=== PATIENT | male | born 1955 | race Caucasian/White ===

== ENCOUNTER 2020-10-06 15:03 | Inpatient (IN) | payer MEDICARE, OTHER ==
[~2020-10-06] VITALS: Ht 177.8 cm; Wt 88.2 kg
[2020-10-06] MEDS ORDERED: ZOLP10TA8 PO (15:09)
[2020-10-06] MEDS ORDERED: ASPI-728 PO (15:09)
[2020-10-06] MEDS ORDERED: METF-960 PO (15:09)
[2020-10-06] MEDS ORDERED: AMLO-257 PO (15:09)
[2020-10-06] MEDS ORDERED: METO-558 PO (15:09)
[2020-10-06] MEDS ORDERED: ATOR40TA28 PO (15:09)
[2020-10-06] MEDS ORDERED: NITR0.4T52 SL (15:09)
[2020-10-06] MEDS ORDERED: MONT-35 PO (15:09)
[2020-10-06] MEDS ORDERED: DEXAMETHASONE SOD PHOS 4 MG/ML VIAL ONE (15:19)
[2020-10-06] MEDS ORDERED: DEXAMETHASONE SOD PHOS 4 MG/ML VIAL IVP ONE (15:30)
[2020-10-06 15:36] LABS: ABG A-A DIFF O2 623.6 mmHg (10-20.0); ABG BASE EXCESS -7.2 mmol/L (-2.0-3.0); ABG CARBOXYHEMOGLOBIN 1.1 % (0.0-1.5); ABG METHEMOGLOBIN 0.2 % (0.0-1.5); ABG OXYGEN CONTENT 18.7 mL/dL (15.0-23.0); ABG OXYGEN SATURATION 90.6 % (95.0-98.0); ABG OXYHEMOGLOBIN 89.4 % (94.0-100.0); ABG PCO2 25 mmHg (35-45); ABG PH 7.444 (7.35-7.450); ABG TOTAL HEMOGLOBIN 14.9 G/dL (12.0-18.0); PO2, ARTERIAL BG 64.2 mmHg (79.0-87.0); SOURCE, BLOOD GAS ARTERIAL; TEMPERATURE, FAHRENHEIT, BG 98.6 FAHREN (96.0-98.6)
[2020-10-06 15:37] LABS: O2 DEVICE,BLOOD GAS NON REBREATHER (ROOM AIR); SITE, BLOOD GAS LFT RADIAL
[2020-10-06 15:38] LABS: HEMATOCRIT 46.8 % (41-53); HEMOGLOBIN 15.1 g/dL (13.5-17.5); MEAN CORPUSCULAR HEMOGLOBIN 29.1 pg (26.0-34.0); MEAN CORPUSCULAR HGB CONC 32.4 G/dL (31.0-37.0); MEAN CORPUSCULAR VOLUME 90 fL (80-100); PLATELET COUNT (AUTO) 308 K/uL (150-450); RED BLOOD CELL COUNT(AUTO) 5.21 MIL/uL (4.50-5.90)
[2020-10-06 16:40] LABS: ALBUMIN 2.3 g/dL (3.4-5.0); BILIRUBIN,TOTAL 1.1 mg/dL (0.1-1.0); C-REACTIVE PROTEIN QUANT 21.87 mg/dL (0.00-0.30); CALCIUM, TOTAL 8.9 mg/dL (8.8-10.5); CREATININE 1.81 mg/dL (0.60-1.30); POTASSIUM 4.6 mmol/L (3.5-5.1); TOTAL PROTEIN, SERUM 7.9 g/dL (6.4-8.2)
[2020-10-06 16:47] LABS: BAND NEUTROPHILS % (MANUAL) 8 % (0-5); LYMPHOCYTES % (MANUAL) 8 % (22-44); METAMYELOCYTES % 2 % (0-0); MONOCYTES % (MANUAL) 3 % (2-9); MYELOCYTES % 2 % (0-0); SEGMENTED NEUTROPHILS % 77 % (40-70)
[2020-10-06] MEDS ORDERED: CefTRIAXone 1 GM/DEXTROSE 50 ML IV ONE (17:00)
[2020-10-06] MEDS ORDERED: SODIUM CHLORIDE 0.9% 1,000 ML IV ONE (17:00)
[2020-10-06] MEDS ORDERED: VANCOMYCIN HCL 1.5 GM in DEXTROSE 5%-WATER 250 ML IV ONE (17:00)
[2020-10-06 17:15] LABS: COVID AG,FIA SOURCE NASAL SWAB
[2020-10-06] MEDS ORDERED: SODIUM CHLORIDE 0.9% 250 ML IV ONE ×2 (17:23→21:42)
[2020-10-06] MEDS ORDERED: POTASSIUM CHL 20 MEQ/0.45% NS 1,000 ML IV PRN (19:45)
[2020-10-06] MEDS ORDERED: DEXTROSE 5%-0.45% SODIUM CHL 1,000 ML IV PRN (19:45)
[2020-10-06] MEDS ORDERED: SODIUM CHLORIDE 0.45% 1,000 ML IV PRN (19:45)
[2020-10-06] MEDS ORDERED: INSULIN REGULAR, HUMAN 100 UNITS/ML IVP PRN (19:45)
[2020-10-06] MEDS ORDERED: POTASSIUM CHLORIDE 40 MEQ in SODIUM CHLORIDE 0.45% 1,000 ML IV PRN (19:45)
[2020-10-06] MEDS ORDERED: INSULIN REGULAR, HUMAN 100 UNITS/ML IVP ONE (19:45)
[2020-10-06] MEDS ORDERED: SODIUM CHLORIDE 0.9% 1,000 ML IV SCH (19:45)
[2020-10-06] MEDS ORDERED: ONDANSETRON HCL 4 MG/2 ML VIAL IVP PRN (19:45)
[2020-10-06] MEDS ORDERED: DEXTROSE 50%-WATER 25 GM/50 ML SYRINGE IVP PRN ×2 (19:45→21:00)
[2020-10-06] MEDS ORDERED: INSULIN REGULAR, HUMAN 100 UNITS in SODIUM CHLORIDE 0.9% 99 ML IV PRN ×2 (19:45)
[2020-10-06 20:20] LABS: ABG A-A DIFF O2 616.6 mmHg (10-20.0); ABG BASE EXCESS -1.3 mmol/L (-2.0-3.0); ABG CARBOXYHEMOGLOBIN 0.7 % (0.0-1.5); ABG HCO3 23.9 mmol/L (22.0-26.0); ABG METHEMOGLOBIN 0.3 % (0.0-1.5); ABG OXYGEN CONTENT 18.7 mL/dL (15.0-23.0); ABG OXYGEN SATURATION 90.4 % (95.0-98.0); ABG OXYHEMOGLOBIN 89.5 % (94.0-100.0); ABG PCO2 33 mmHg (35-45); ABG PH 7.453 (7.35-7.450); ABG TOTAL HEMOGLOBIN 14.9 G/dL (12.0-18.0); PO2, ARTERIAL BG 63.3 mmHg (79.0-87.0); SOURCE, BLOOD GAS ARTERIAL; TEMPERATURE, FAHRENHEIT, BG 98.6 FAHREN (96.0-98.6)
[2020-10-06 20:21] LABS: O2 DEVICE,BLOOD GAS HI FL CANNULA (ROOM AIR); SITE, BLOOD GAS LFT RADIAL
[2020-10-06] MEDS ORDERED: HEPARIN SODIUM,PORCINE 5,000 UNITS/ML VIAL IVP PRN ×2 (20:45)
[2020-10-06] MEDS ORDERED: HEPARIN SODIUM 25000 UNITS/D5W 250 ML IV PRN (20:45)
[2020-10-06] MEDS ORDERED: SODIUM CHLORIDE 0.45% 1,000 ML IV SCH (21:00)
[2020-10-06] MEDS ORDERED: INSULIN GLARGINE,HUM.REC.ANLOG 100 UNITS/ML SQ SCH (21:00)
[2020-10-06] MEDS: AZITHROMYCIN 500 MG/NS 250 ML IV SCH (21:19)
[2020-10-06] MEDS: DOCUSATE SODIUM 100 MG CAPSULE PO SCH (21:23)
[2020-10-06 22:59] LABS: RED CELL DISTRIBUTION WIDTH 14.5 % (11.5-14.5)
[2020-10-06 23:05] LABS: HEMATOCRIT 43.7 % (41-53); MEAN CORPUSCULAR HEMOGLOBIN 28.6 pg (26.0-34.0); MEAN CORPUSCULAR HGB CONC 32.1 G/dL (31.0-37.0); MEAN CORPUSCULAR VOLUME 89 fL (80-100); PLATELET COUNT (AUTO) 221 K/uL (150-450)
[2020-10-06 23:09] LABS: D-DIMER 31.92 mg/L FEU (0.00-0.50); INR 1.1 (0.9-1.1); PROTHROMBIN TIME 11.3 SEC (9.4-11.6)
[2020-10-06 23:40] LABS: C-REACTIVE PROTEIN QUANT 17.5 mg/dL (0.00-0.30)
[2020-10-06 23:54] LABS: BAND NEUTROPHILS % (MANUAL) 9 % (0-5); LYMPHOCYTES % (MANUAL) 4 % (22-44); METAMYELOCYTES % 1 % (0-0); MONOCYTES % (MANUAL) 3 % (2-9); MYELOCYTES % 1 % (0-0); SEGMENTED NEUTROPHILS % 82 % (40-70)
[2020-10-07] VITALS: BP 146/101
[2020-10-07] MEDS ORDERED: INSULIN LISPRO 100 UNITS/ML SQ ONE (00:45)
[2020-10-07 01:42] LABS: BILIRUBIN,TOTAL 0.9 mg/dL (0.1-1.0); CALCIUM, TOTAL 7.5 mg/dL (8.8-10.5); CREATININE 1.23 mg/dL (0.60-1.30); POTASSIUM 4.4 mmol/L (3.5-5.1); TOTAL PROTEIN, SERUM 6.7 g/dL (6.4-8.2)
[2020-10-07] MEDS: INSULIN LISPRO 100 UNITS/ML SQ PRN ×4 (02:08→16:37)
[2020-10-07 04:00] VITALS: BP 134/82
[2020-10-07 05:55] LABS: HEMATOCRIT 41.6 % (41-53); HEMOGLOBIN 13.9 g/dL (13.5-17.5); MEAN CORPUSCULAR HEMOGLOBIN 29.3 pg (26.0-34.0); MEAN CORPUSCULAR HGB CONC 33.5 G/dL (31.0-37.0); MEAN CORPUSCULAR VOLUME 87 fL (80-100); PLATELET COUNT (AUTO) 218 K/uL (150-450); RED BLOOD CELL COUNT(AUTO) 4.76 MIL/uL (4.50-5.90); RED CELL DISTRIBUTION WIDTH 14.6 % (11.5-14.5)
[2020-10-07 06:00] LABS: D-DIMER 35.2 mg/L FEU (0.00-0.50)
[2020-10-07] MEDS ORDERED: NITROGLYCERIN 0.4 MG SUBLINGUAL TABLET #25 SL PRN (06:15)
[2020-10-07 06:31] LABS: ALANINE AMINOTRANSFERASE 49 U/L (12-78); ALKALINE PHOSPHATASE 241 U/L (46-116); ANION GAP 0 mmol/L (8-16); ASPARTATE AMINOTRANSFERASE 59 U/L (15-37); C-REACTIVE PROTEIN QUANT 14.13 mg/dL (0.00-0.30); CALCIUM, TOTAL 8.1 mg/dL (8.8-10.5); CARBON DIOXIDE 27 mmol/L (22-29); CHLORIDE 99 mmol/L (98-107); CREATININE 1.09 mg/dL (0.60-1.30); FERRITIN 2029 ng/mL (26-388); GLOMERULAR FILTR. RATE CALC > 60 mL/min (>60); GLUCOSE,RANDOM 317 mg/dL (70-110); POTASSIUM 3.8 mmol/L (3.5-5.1); SODIUM SERUM 126 mmol/L (136-145); TOTAL PROTEIN, SERUM 6.6 g/dL (6.4-8.2); UREA NITROGEN, BLOOD 37 mg/dL (7-18)
[2020-10-07 07:23] LABS: GLUCOSE,POINT OF CARE 575 MG/DL (70-110)
[2020-10-07 07:32] LABS: BAND NEUTROPHILS % (MANUAL) 10 % (0-5); LYMPHOCYTES % (MANUAL) 5 % (22-44); METAMYELOCYTES % 1 % (0-0); MONOCYTES % (MANUAL) 2 % (2-9); MYELOCYTES % 1 % (0-0); SEGMENTED NEUTROPHILS % 81 % (40-70)
[2020-10-07 08:00] VITALS: BP 105/64
[2020-10-07] MEDS ORDERED: HEPARIN SODIUM,PORCINE 5,000 UNITS/ML VIAL IVP PRN ×2 (08:30)
[2020-10-07] MEDS: ASPIRIN 81 MG CHEWABLE TABLET PO SCH (09:03)
[2020-10-07] MEDS: AmLODIPine BESYLATE 5 MG TABLET PO SCH (09:03)
[2020-10-07] MEDS: MONTELUKAST SODIUM 10 MG TABLET PO SCH (09:03)
[2020-10-07] MEDS: DOCUSATE SODIUM 100 MG CAPSULE PO SCH ×2 (09:03→20:53)
[2020-10-07] MEDS: METOPROLOL SUCCINATE 50 MG ER TABLET PO SCH (09:04)
[2020-10-07] MEDS: ATORVASTATIN CALCIUM 40 MG TABLET PO SCH (09:05)
[2020-10-07 09:37] LABS: ABG BASE EXCESS 3.3 mmol/L (-2.0-3.0); ABG CARBOXYHEMOGLOBIN 0.8 % (0.0-1.5); ABG HCO3 27.5 mmol/L (22.0-26.0); ABG METHEMOGLOBIN 0.3 % (0.0-1.5); ABG OXYGEN CONTENT 17.9 mL/dL (15.0-23.0); ABG OXYGEN SATURATION 91.5 % (95.0-98.0); ABG OXYHEMOGLOBIN 90.5 % (94.0-100.0); ABG PCO2 35 mmHg (35-45); ABG TOTAL HEMOGLOBIN 14.1 G/dL (12.0-18.0); SOURCE, BLOOD GAS ARTERIAL
[2020-10-07 09:38] LABS: O2 DEVICE,BLOOD GAS HI FL CANNULA (ROOM AIR); SITE, BLOOD GAS RT RADIAL
[2020-10-07] MEDS ORDERED: INSULIN GLARGINE,HUM.REC.ANLOG 100 UNITS/ML SQ SCH (10:00)
[2020-10-07] MEDS: DEXAMETHASONE SOD PHOS 4 MG/ML VIAL IVP SCH (11:59)
[2020-10-07 12:00] VITALS: BP 114/72
[2020-10-07 16:00] VITALS: BP 116/65
[2020-10-07] MEDS: HEPARIN SODIUM 25000 UNITS/D5W 250 ML IV PRN (16:39)
[2020-10-07] MEDS: CefTRIAXone 1 GM/DEXTROSE 50 ML IV SCH (18:28)
[2020-10-07 20:00] VITALS: BP 126/76
[2020-10-07] MEDS: AZITHROMYCIN 500 MG/NS 250 ML IV SCH (20:53)
[2020-10-07] MEDS: INSULIN GLARGINE,HUM.REC.ANLOG 100 UNITS/ML SQ SCH (21:02)
[2020-10-08] VITALS: BP 148/79
[2020-10-08 04:00] VITALS: BP 111/62
[2020-10-08 05:54] LABS: HEMATOCRIT 39.4 % (41-53); HEMOGLOBIN 13.2 g/dL (13.5-17.5); MEAN CORPUSCULAR HEMOGLOBIN 29.7 pg (26.0-34.0); MEAN CORPUSCULAR HGB CONC 33.5 G/dL (31.0-37.0); MEAN CORPUSCULAR VOLUME 89 fL (80-100); PLATELET COUNT (AUTO) 194 K/uL (150-450); RED BLOOD CELL COUNT(AUTO) 4.44 MIL/uL (4.50-5.90); RED CELL DISTRIBUTION WIDTH 14.2 % (11.5-14.5)
[2020-10-08] MEDS: INSULIN LISPRO 100 UNITS/ML SQ PRN ×5 (06:13→22:09)
[2020-10-08] MEDS ORDERED: SODIUM CHLORIDE 0.9% 250 ML IV ONE (06:31)
[2020-10-08 06:42] LABS: D-DIMER 35.2 mg/L FEU (0.00-0.50)
[2020-10-08 06:55] LABS: ALANINE AMINOTRANSFERASE 54 U/L (12-78); ALBUMIN 2.1 g/dL (3.4-5.0); ALKALINE PHOSPHATASE 245 U/L (46-116); ANION GAP 10 mmol/L (8-16); ASPARTATE AMINOTRANSFERASE 67 U/L (15-37); BILIRUBIN,TOTAL 0.8 mg/dL (0.1-1.0); C-REACTIVE PROTEIN QUANT 5.97 mg/dL (0.00-0.30); CALCIUM, TOTAL 7.9 mg/dL (8.8-10.5); CARBON DIOXIDE 26 mmol/L (22-29); CHLORIDE 100 mmol/L (98-107); FERRITIN 972 ng/mL (26-388); GLOMERULAR FILTR. RATE CALC > 60 mL/min (>60); GLUCOSE,RANDOM 316 mg/dL (70-110); POTASSIUM 4.5 mmol/L (3.5-5.1); SODIUM SERUM 136 mmol/L (136-145); TOTAL PROTEIN, SERUM 6.2 g/dL (6.4-8.2); UREA NITROGEN, BLOOD 23 mg/dL (7-18)
[2020-10-08 08:00] VITALS: BP 114/71
[2020-10-08] MEDS: DEXAMETHASONE SOD PHOS 4 MG/ML VIAL IVP SCH (08:59)
[2020-10-08] MEDS: ASPIRIN 81 MG CHEWABLE TABLET PO SCH (08:59)
[2020-10-08] MEDS: MONTELUKAST SODIUM 10 MG TABLET PO SCH (08:59)
[2020-10-08] MEDS: AmLODIPine BESYLATE 5 MG TABLET PO SCH (08:59)
[2020-10-08] MEDS: METOPROLOL SUCCINATE 50 MG ER TABLET PO SCH (08:59)
[2020-10-08] MEDS: ATORVASTATIN CALCIUM 40 MG TABLET PO SCH (08:59)
[2020-10-08] MEDS: DOCUSATE SODIUM 100 MG CAPSULE PO SCH ×2 (09:00→21:00)
[2020-10-08] MEDS: INSULIN GLARGINE,HUM.REC.ANLOG 100 UNITS/ML SQ SCH ×2 (09:18→22:08)
[2020-10-08] MEDS: HEPARIN SODIUM 25000 UNITS/D5W 250 ML IV PRN (10:44)
[2020-10-08 12:00] VITALS: BP 135/75
[2020-10-08 13:13] LABS: BAND NEUTROPHILS % (MANUAL) 1 % (0-5); LYMPHOCYTES % (MANUAL) 3 % (22-44); MONOCYTES % (MANUAL) 1 % (2-9); MYELOCYTES % 1 % (0-0); SEGMENTED NEUTROPHILS % 94 % (40-70)
[2020-10-08 16:00] VITALS: BP 144/49
[2020-10-08 16:43] LABS: GLUCOSE,POINT OF CARE 508 MG/DL (70-110)
[2020-10-08 16:43] LABS: GLUCOSE,POINT OF CARE 556 MG/DL (70-110)
[2020-10-08 16:44] LABS: GLUCOSE,POINT OF CARE 530 MG/DL (70-110)
[2020-10-08 16:44] LABS: GLUCOSE,POINT OF CARE 531 MG/DL (70-110)
[2020-10-08 16:44] LABS: GLUCOSE,POINT OF CARE 392 MG/DL (70-110)
[2020-10-08 16:44] LABS: GLUCOSE,POINT OF CARE 397 MG/DL (70-110)
[2020-10-08] MEDS: CefTRIAXone 1 GM/DEXTROSE 50 ML IV SCH (17:27)
[2020-10-08 19:21] LABS: GLUCOSE,POINT OF CARE 459 MG/DL (70-110)
[2020-10-08 19:21] LABS: GLUCOSE,POINT OF CARE 427 MG/DL (70-110)
[2020-10-08 19:22] LABS: GLUCOSE,POINT OF CARE 273 MG/DL (70-110)
[2020-10-08 19:22] LABS: GLUCOSE,POINT OF CARE 247 MG/DL (70-110)
[2020-10-08 19:22] LABS: GLUCOSE,POINT OF CARE 279 MG/DL (70-110)
[2020-10-08 19:22] LABS: GLUCOSE,POINT OF CARE 385 MG/DL (70-110)
[2020-10-08 19:22] LABS: GLUCOSE,POINT OF CARE 302 MG/DL (70-110)
[2020-10-08 20:00] VITALS: BP 111/56
[2020-10-08] MEDS: AZITHROMYCIN 500 MG/NS 250 ML IV SCH (20:41)
[2020-10-08 22:15] LABS: GLUCOSE,POINT OF CARE 313 MG/DL (70-110)
[2020-10-09] VITALS: BP 128/68
[2020-10-09] MEDS: HEPARIN SODIUM 25000 UNITS/D5W 250 ML IV PRN ×2 (01:58→20:15)
[2020-10-09 04:00] VITALS: BP 115/61
[2020-10-09 05:26] LABS: BASOPHILS % (AUTO) 0.7 % (0.0-2.0); HEMATOCRIT 40.4 % (41-53); HEMOGLOBIN 13.1 g/dL (13.5-17.5); LYMPHOCYTES # (AUTO) 0.7 K/uL (1.0-4.8); LYMPHOCYTES % (AUTO) 4.6 % (22.0-44.0); MEAN CORPUSCULAR HEMOGLOBIN 28.8 pg (26.0-34.0); MEAN CORPUSCULAR HGB CONC 32.5 G/dL (31.0-37.0); MEAN CORPUSCULAR VOLUME 89 fL (80-100); MONOCYTES # (AUTO) 0.2 K/uL (0.1-1.0); NEUTROPHILS # (AUTO) 14.5 K/uL (1.8-7.7); PLATELET COUNT (AUTO) 193 K/uL (150-450); RED BLOOD CELL COUNT(AUTO) 4.56 MIL/uL (4.50-5.90); RED CELL DISTRIBUTION WIDTH 14.2 % (11.5-14.5)
[2020-10-09 05:36] LABS: NEUTROPHILS % (AUTO) 92.7 % (40.0-70.0)
[2020-10-09 05:45] LABS: D-DIMER 14.79 mg/L FEU (0.00-0.50)
[2020-10-09 06:01] LABS: ALANINE AMINOTRANSFERASE 39 U/L (12-78); ALKALINE PHOSPHATASE 223 U/L (46-116); ANION GAP 4 mmol/L (8-16); ASPARTATE AMINOTRANSFERASE 56 U/L (15-37); BILIRUBIN,TOTAL 0.8 mg/dL (0.1-1.0); C-REACTIVE PROTEIN QUANT 3.69 mg/dL (0.00-0.30); CALCIUM, TOTAL 7.9 mg/dL (8.8-10.5); CARBON DIOXIDE 28 mmol/L (22-29); CHLORIDE 102 mmol/L (98-107); CREATININE 0.67 mg/dL (0.60-1.30); FERRITIN 748 ng/mL (26-388); GLOMERULAR FILTR. RATE CALC > 60 mL/min (>60); GLUCOSE,RANDOM 118 mg/dL (70-110); POTASSIUM 4.1 mmol/L (3.5-5.1); SODIUM SERUM 134 mmol/L (136-145); UREA NITROGEN, BLOOD 15 mg/dL (7-18)
[2020-10-09] MEDS: ASPIRIN 81 MG CHEWABLE TABLET PO SCH (07:55)
[2020-10-09] MEDS: DEXAMETHASONE SOD PHOS 4 MG/ML VIAL IVP SCH (07:55)
[2020-10-09] MEDS: ATORVASTATIN CALCIUM 40 MG TABLET PO SCH (07:55)
[2020-10-09] MEDS: AmLODIPine BESYLATE 5 MG TABLET PO SCH (07:55)
[2020-10-09] MEDS: METOPROLOL SUCCINATE 50 MG ER TABLET PO SCH (07:55)
[2020-10-09] MEDS: MONTELUKAST SODIUM 10 MG TABLET PO SCH (07:56)
[2020-10-09] MEDS: INSULIN GLARGINE,HUM.REC.ANLOG 100 UNITS/ML SQ SCH ×2 (07:57→20:15)
[2020-10-09] MEDS: DOCUSATE SODIUM 100 MG CAPSULE PO SCH ×2 (07:57→21:00)
[2020-10-09 08:00] VITALS: BP 116/71
[2020-10-09 08:02] LABS: GLUCOSE,POINT OF CARE 122 MG/DL (70-110)
[2020-10-09 09:55] LABS: ABG BASE EXCESS 2.5 mmol/L (-2.0-3.0); ABG HCO3 26.8 mmol/L (22.0-26.0); ABG METHEMOGLOBIN 0.3 % (0.0-1.5); ABG OXYGEN CONTENT 17.4 mL/dL (15.0-23.0); ABG OXYGEN SATURATION 90.5 % (95.0-98.0); ABG OXYHEMOGLOBIN 89.3 % (94.0-100.0); ABG PCO2 35 mmHg (35-45); ABG PH 7.491 (7.35-7.450); ABG TOTAL HEMOGLOBIN 13.9 G/dL (12.0-18.0); PO2, ARTERIAL BG 56.3 mmHg (79.0-87.0); SOURCE, BLOOD GAS ARTERIAL; TEMPERATURE, FAHRENHEIT, BG 98.8 FAHREN (96.0-98.6)
[2020-10-09 09:56] LABS: O2 DEVICE,BLOOD GAS HI FL CANNULA (ROOM AIR); SITE, BLOOD GAS RT RADIAL
[2020-10-09] MEDS: ALPRAZolam 0.25 MG TABLET PO PRN (10:50)
[2020-10-09 12:00] VITALS: BP 111/64
[2020-10-09] MEDS: INSULIN LISPRO 100 UNITS/ML SQ PRN ×3 (12:13→20:16)
[2020-10-09 16:00] VITALS: BP 119/61
[2020-10-09] MEDS: CefTRIAXone 1 GM/DEXTROSE 50 ML IV SCH (18:26)
[2020-10-09] MEDS: LORazepam 2 MG/ML VIAL IVP PRN (18:27)
[2020-10-09 19:15] LABS: ABG A-A DIFF O2 551.7 mmHg (10-20.0); ABG HCO3 25.5 mmol/L (22.0-26.0); ABG METHEMOGLOBIN 0.3 % (0.0-1.5); ABG OXYGEN CONTENT 19.4 mL/dL (15.0-23.0); ABG OXYGEN SATURATION 97.9 % (95.0-98.0); ABG OXYHEMOGLOBIN 96.6 % (94.0-100.0); ABG PCO2 40 mmHg (35-45); ABG PH 7.419 (7.35-7.450); ABG TOTAL HEMOGLOBIN 14.2 G/dL (12.0-18.0); FRACTIONATED INSPIRED OXYGEN 98.6 % (21-100.0); PO2, ARTERIAL BG 108.8 mmHg (79.0-87.0); SITE, BLOOD GAS RT RADIAL; SOURCE, BLOOD GAS ARTERIAL
[2020-10-09 19:16] LABS: O2 DEVICE,BLOOD GAS BIPAP (ROOM AIR)
[2020-10-09 20:00] VITALS: BP 117/65
[2020-10-09] MEDS: AZITHROMYCIN 500 MG/NS 250 ML IV SCH (20:14)
[2020-10-09 20:21] LABS: GLUCOSE,POINT OF CARE 189 MG/DL (70-110)
[2020-10-09 20:36] LABS: GLUCOSE,POINT OF CARE 210 MG/DL (70-110)
[2020-10-09 20:36] LABS: GLUCOSE,POINT OF CARE 304 MG/DL (70-110)
[2020-10-10] VITALS: BP 117/65
[2020-10-10 04:00] VITALS: BP 124/66
[2020-10-10] MEDS ORDERED: SODIUM CHLORIDE 0.9% 250 ML IV ONE ×2 (04:00→21:49)
[2020-10-10 05:12] LABS: BASOPHILS % (AUTO) 0.2 % (0.0-2.0); EOSINOPHILS % (AUTO) 0.8 % (1.0-6.0); HEMATOCRIT 40.8 % (41-53); HEMOGLOBIN 13.4 g/dL (13.5-17.5); LYMPHOCYTES # (AUTO) 0.5 K/uL (1.0-4.8); LYMPHOCYTES % (AUTO) 2.8 % (22.0-44.0); MEAN CORPUSCULAR HGB CONC 32.8 G/dL (31.0-37.0); MEAN CORPUSCULAR VOLUME 88 fL (80-100); MONOCYTES # (AUTO) 0.2 K/uL (0.1-1.0); MONOCYTES % (AUTO) 1.4 % (2.0-9.0); NEUTROPHILS # (AUTO) 15.7 K/uL (1.8-7.7); PLATELET COUNT (AUTO) 211 K/uL (150-450); RED BLOOD CELL COUNT(AUTO) 4.63 MIL/uL (4.50-5.90); RED CELL DISTRIBUTION WIDTH 14.3 % (11.5-14.5)
[2020-10-10 05:21] LABS: NEUTROPHILS % (AUTO) 94.8 % (40.0-70.0)
[2020-10-10 05:27] LABS: D-DIMER 10.84 mg/L FEU (0.00-0.50)
[2020-10-10 05:41] LABS: ALANINE AMINOTRANSFERASE 40 U/L (12-78); ALKALINE PHOSPHATASE 219 U/L (46-116); ANION GAP 5 mmol/L (8-16); ASPARTATE AMINOTRANSFERASE 70 U/L (15-37); BILIRUBIN,TOTAL 0.9 mg/dL (0.1-1.0); C-REACTIVE PROTEIN QUANT 11.62 mg/dL (0.00-0.30); CALCIUM, TOTAL 8.3 mg/dL (8.8-10.5); CARBON DIOXIDE 28 mmol/L (22-29); CHLORIDE 101 mmol/L (98-107); CREATININE 0.68 mg/dL (0.60-1.30); FERRITIN 818 ng/mL (26-388); GLOMERULAR FILTR. RATE CALC > 60 mL/min (>60); GLUCOSE,RANDOM 101 mg/dL (70-110); POTASSIUM 4.3 mmol/L (3.5-5.1); SODIUM SERUM 134 mmol/L (136-145); TOTAL PROTEIN, SERUM 6.4 g/dL (6.4-8.2); UREA NITROGEN, BLOOD 16 mg/dL (7-18)
[2020-10-10] MEDS: ACETAMINOPHEN 325 MG TABLET PO PRN ×2 (06:41→14:58)
[2020-10-10] MEDS: INSULIN LISPRO 100 UNITS/ML SQ PRN ×4 (06:42→21:47)
[2020-10-10 08:17] LABS: GLUCOSE,POINT OF CARE 125 MG/DL (70-110)
[2020-10-10] MEDS: DOCUSATE SODIUM 100 MG CAPSULE PO SCH ×2 (09:00→20:17)
[2020-10-10] MEDS: AmLODIPine BESYLATE 5 MG TABLET PO SCH (10:08)
[2020-10-10] MEDS: ASPIRIN 81 MG CHEWABLE TABLET PO SCH (10:08)
[2020-10-10] MEDS: ATORVASTATIN CALCIUM 40 MG TABLET PO SCH (10:08)
[2020-10-10] MEDS: MONTELUKAST SODIUM 10 MG TABLET PO SCH (10:09)
[2020-10-10] MEDS: METOPROLOL SUCCINATE 50 MG ER TABLET PO SCH (10:09)
[2020-10-10] MEDS: DEXAMETHASONE SOD PHOS 4 MG/ML VIAL IVP SCH (10:09)
[2020-10-10] MEDS: INSULIN GLARGINE,HUM.REC.ANLOG 100 UNITS/ML SQ SCH ×2 (10:10→21:45)
[2020-10-10 12:00] VITALS: BP 124/69
[2020-10-10] MEDS: HEPARIN SODIUM 25000 UNITS/D5W 250 ML IV PRN (13:30)
[2020-10-10 16:00] VITALS: BP 117/62
[2020-10-10] MEDS: CefTRIAXone 1 GM/DEXTROSE 50 ML IV SCH (18:16)
[2020-10-10 18:58] LABS: GLUCOSE,POINT OF CARE 170 MG/DL (70-110)
[2020-10-10 18:58] LABS: GLUCOSE,POINT OF CARE 198 MG/DL (70-110)
[2020-10-10 20:00] VITALS: BP 118/70
[2020-10-10] MEDS: AZITHROMYCIN 500 MG/NS 250 ML IV SCH (20:16)
[2020-10-10 20:57] LABS: GLUCOSE,POINT OF CARE 164 MG/DL (70-110)
[2020-10-11 04:00] VITALS: BP 115/64
[2020-10-11] MEDS: HEPARIN SODIUM 25000 UNITS/D5W 250 ML IV PRN (04:56)
[2020-10-11 07:35] LABS: GLUCOSE,POINT OF CARE 143 MG/DL (70-110)
[2020-10-11 07:54] LABS: ABG A-A DIFF O2 364.5 mmHg (10-20.0); ABG BASE EXCESS 6.3 mmol/L (-2.0-3.0); ABG HCO3 29.8 mmol/L (22.0-26.0); ABG METHEMOGLOBIN 0.3 % (0.0-1.5); ABG OXYGEN CONTENT 18.4 mL/dL (15.0-23.0); ABG OXYGEN SATURATION 91.8 % (95.0-98.0); ABG OXYHEMOGLOBIN 90.6 % (94.0-100.0); ABG PCO2 38 mmHg (35-45); ABG PH 7.507 (7.35-7.450); ABG TOTAL HEMOGLOBIN 14.5 G/dL (12.0-18.0); PO2, ARTERIAL BG 57.7 mmHg (79.0-87.0); SITE, BLOOD GAS RT RADIAL; SOURCE, BLOOD GAS ARTERIAL; TEMPERATURE, FAHRENHEIT, BG 98.6 FAHREN (96.0-98.6)
[2020-10-11 07:55] LABS: O2 DEVICE,BLOOD GAS VENTILATOR (ROOM AIR); PRESSURE SUPPORT, BG 12 cm H2O; SPONTANEOUS VT, BG 850 ml; VENT MODE, BG BIPA (ROOM AIR)
[2020-10-11 08:00] VITALS: BP 129/73
[2020-10-11] MEDS: AmLODIPine BESYLATE 5 MG TABLET PO SCH (08:26)
[2020-10-11] MEDS: ASPIRIN 81 MG CHEWABLE TABLET PO SCH (08:26)
[2020-10-11] MEDS: DEXAMETHASONE SOD PHOS 4 MG/ML VIAL IVP SCH (08:26)
[2020-10-11] MEDS: METOPROLOL SUCCINATE 50 MG ER TABLET PO SCH (08:26)
[2020-10-11] MEDS: MONTELUKAST SODIUM 10 MG TABLET PO SCH (08:26)
[2020-10-11] MEDS: ATORVASTATIN CALCIUM 40 MG TABLET PO SCH (08:26)
[2020-10-11] MEDS: DOCUSATE SODIUM 100 MG CAPSULE PO SCH ×2 (08:27→20:30)
[2020-10-11] MEDS: INSULIN GLARGINE,HUM.REC.ANLOG 100 UNITS/ML SQ SCH ×2 (08:30→20:29)
[2020-10-11 12:00] VITALS: BP 126/67
[2020-10-11] MEDS: INSULIN LISPRO 100 UNITS/ML SQ PRN ×3 (12:01→23:39)
[2020-10-11 13:27] LABS: GLUCOSE,POINT OF CARE 285 MG/DL (70-110)
[2020-10-11 13:27] LABS: GLUCOSE,POINT OF CARE 127 MG/DL (70-110)
[2020-10-11 16:00] VITALS: BP 131/68
[2020-10-11] MEDS: ACETAMINOPHEN 325 MG TABLET PO PRN (17:07)
[2020-10-11] MEDS: CefTRIAXone 1 GM/DEXTROSE 50 ML IV SCH (18:07)
[2020-10-11 18:26] LABS: GLUCOSE,POINT OF CARE 211 MG/DL (70-110)
[2020-10-11] MEDS: AZITHROMYCIN 500 MG/NS 250 ML IV SCH (20:30)
[2020-10-11 23:31] LABS: GLUCOSE,POINT OF CARE 229 MG/DL (70-110)
[2020-10-12] VITALS (7 sets, daily range): BP systolic 97–129; BP diastolic 41–69
[2020-10-12] MEDS: INSULIN LISPRO 100 UNITS/ML SQ PRN ×4 (06:01→20:38)
[2020-10-12] MEDS: INSULIN GLARGINE,HUM.REC.ANLOG 100 UNITS/ML SQ SCH ×2 (09:00→20:37)
[2020-10-12] MEDS: DEXAMETHASONE SOD PHOS 4 MG/ML VIAL IVP SCH (09:18)
[2020-10-12] MEDS: ATORVASTATIN CALCIUM 40 MG TABLET PO SCH (09:19)
[2020-10-12] MEDS: DOCUSATE SODIUM 100 MG CAPSULE PO SCH ×2 (09:19→20:40)
[2020-10-12] MEDS: METOPROLOL SUCCINATE 50 MG ER TABLET PO SCH (09:19)
[2020-10-12] MEDS: ASPIRIN 81 MG CHEWABLE TABLET PO SCH (09:19)
[2020-10-12] MEDS: MONTELUKAST SODIUM 10 MG TABLET PO SCH (09:19)
[2020-10-12] MEDS ORDERED: SODIUM CHLORIDE 0.9% 250 ML IV ONE (10:06)
[2020-10-12 11:04] LABS: GLUCOSE,POINT OF CARE 149 MG/DL (70-110)
[2020-10-12] MEDS: AmLODIPine BESYLATE 5 MG TABLET PO SCH (11:34)
[2020-10-12 12:58] LABS: GLUCOSE,POINT OF CARE 111 MG/DL (70-110)
[2020-10-12 12:58] LABS: GLUCOSE,POINT OF CARE 221 MG/DL (70-110)
[2020-10-12] MEDS: HEPARIN SODIUM 25000 UNITS/D5W 250 ML IV PRN (15:24)
[2020-10-12] MEDS: CefTRIAXone 1 GM/DEXTROSE 50 ML IV SCH (17:03)
[2020-10-12] MEDS: AZITHROMYCIN 500 MG/NS 250 ML IV SCH (20:18)
[2020-10-13] VITALS: BP 117/70
[2020-10-13 04:00] VITALS: BP 107/52
[2020-10-13] MEDS: HEPARIN SODIUM 25000 UNITS/D5W 250 ML IV PRN ×2 (05:27→22:03)
[2020-10-13 07:01] LABS: GLUCOSE,POINT OF CARE 101 MG/DL (70-110)
[2020-10-13 07:01] LABS: GLUCOSE,POINT OF CARE 269 MG/DL (70-110)
[2020-10-13 07:01] LABS: GLUCOSE,POINT OF CARE 278 MG/DL (70-110)
[2020-10-13 08:00] VITALS: BP 133/73
[2020-10-13] MEDS: AmLODIPine BESYLATE 5 MG TABLET PO SCH (08:26)
[2020-10-13] MEDS: ASPIRIN 81 MG CHEWABLE TABLET PO SCH (08:26)
[2020-10-13] MEDS: ATORVASTATIN CALCIUM 40 MG TABLET PO SCH (08:27)
[2020-10-13] MEDS: DOCUSATE SODIUM 100 MG CAPSULE PO SCH ×2 (08:27→20:19)
[2020-10-13] MEDS: DEXAMETHASONE SOD PHOS 4 MG/ML VIAL IVP SCH (08:27)
[2020-10-13] MEDS: METOPROLOL SUCCINATE 50 MG ER TABLET PO SCH (08:27)
[2020-10-13] MEDS: MONTELUKAST SODIUM 10 MG TABLET PO SCH (08:27)
[2020-10-13] MEDS: INSULIN GLARGINE,HUM.REC.ANLOG 100 UNITS/ML SQ SCH ×2 (09:00→20:51)
[2020-10-13 12:00] VITALS: BP 127/69
[2020-10-13] MEDS: INSULIN LISPRO 100 UNITS/ML SQ PRN ×2 (13:35→17:44)
[2020-10-13 16:00] VITALS: BP 107/57
[2020-10-13] MEDS ORDERED: SODIUM CHLORIDE 0.9% 250 ML IV ONE (17:56)
[2020-10-13] MEDS: CefTRIAXone 1 GM/DEXTROSE 50 ML IV SCH (18:06)
[2020-10-13 20:00] VITALS: BP 118/73
[2020-10-13] MEDS: AZITHROMYCIN 500 MG/NS 250 ML IV SCH (20:19)
[2020-10-13] MEDS: ALPRAZolam 0.25 MG TABLET PO PRN (20:22)
[2020-10-13 22:43] LABS: GLUCOSE,POINT OF CARE 182 MG/DL (70-110)
[2020-10-13 22:43] LABS: GLUCOSE,POINT OF CARE 206 MG/DL (70-110)
[2020-10-13] MEDS: LORazepam 2 MG/ML VIAL IVP PRN (23:00)
[2020-10-14] VITALS: BP 117/62
[2020-10-14 02:05] LABS: GLUCOSE,POINT OF CARE 213 MG/DL (70-110)
[2020-10-14 02:05] LABS: GLUCOSE,POINT OF CARE 98 MG/DL (70-110)
[2020-10-14 04:00] VITALS: BP 116/55
[2020-10-14] MEDS: ACETAMINOPHEN 325 MG TABLET PO PRN (06:00)
[2020-10-14 06:08] LABS: BASOPHILS % (AUTO) 0.1 % (0.0-2.0); EOSINOPHILS % (AUTO) 0.9 % (1.0-6.0); HEMATOCRIT 39.3 % (41-53); LYMPHOCYTES # (AUTO) 0.5 K/uL (1.0-4.8); LYMPHOCYTES % (AUTO) 2.9 % (22.0-44.0); MEAN CORPUSCULAR VOLUME 88 fL (80-100); MONOCYTES # (AUTO) 0.3 K/uL (0.1-1.0); NEUTROPHILS # (AUTO) 15.4 K/uL (1.8-7.7); PLATELET COUNT (AUTO) 371 K/uL (150-450); RED BLOOD CELL COUNT(AUTO) 4.48 MIL/uL (4.50-5.90); RED CELL DISTRIBUTION WIDTH 14.4 % (11.5-14.5)
[2020-10-14] MEDS: INSULIN LISPRO 100 UNITS/ML SQ PRN ×3 (06:13→17:48)
[2020-10-14 06:27] LABS: ALANINE AMINOTRANSFERASE 196 U/L (12-78); ALBUMIN 1.9 g/dL (3.4-5.0); ALKALINE PHOSPHATASE 398 U/L (46-116); ANION GAP 5 mmol/L (8-16); ASPARTATE AMINOTRANSFERASE 228 U/L (15-37); BILIRUBIN,TOTAL 0.6 mg/dL (0.1-1.0); CALCIUM, TOTAL 8.3 mg/dL (8.8-10.5); CARBON DIOXIDE 30 mmol/L (22-29); CHLORIDE 96 mmol/L (98-107); CREATININE 0.83 mg/dL (0.60-1.30); GLOMERULAR FILTR. RATE CALC > 60 mL/min (>60); GLUCOSE,RANDOM 247 mg/dL (70-110); POTASSIUM 3.7 mmol/L (3.5-5.1); SODIUM SERUM 131 mmol/L (136-145); TOTAL PROTEIN, SERUM 6.3 g/dL (6.4-8.2); UREA NITROGEN, BLOOD 18 mg/dL (7-18)
[2020-10-14 06:31] LABS: NEUTROPHILS % (AUTO) 94.1 % (40.0-70.0)
[2020-10-14 08:00] VITALS: BP 118/74
[2020-10-14] MEDS: DOCUSATE SODIUM 100 MG CAPSULE PO SCH ×2 (08:55→20:53)
[2020-10-14] MEDS: METOPROLOL SUCCINATE 50 MG ER TABLET PO SCH (08:56)
[2020-10-14] MEDS: ASPIRIN 81 MG CHEWABLE TABLET PO SCH (08:56)
[2020-10-14] MEDS: MONTELUKAST SODIUM 10 MG TABLET PO SCH (08:56)
[2020-10-14] MEDS: ATORVASTATIN CALCIUM 40 MG TABLET PO SCH (08:56)
[2020-10-14] MEDS: DEXAMETHASONE SOD PHOS 4 MG/ML VIAL IVP SCH (08:58)
[2020-10-14] MEDS: INSULIN GLARGINE,HUM.REC.ANLOG 100 UNITS/ML SQ SCH ×2 (09:09→20:54)
[2020-10-14 11:35] LABS: GLUCOSE,POINT OF CARE 227 MG/DL (70-110)
[2020-10-14] MEDS: AmLODIPine BESYLATE 5 MG TABLET PO SCH (11:53)
[2020-10-14 12:00] VITALS: BP 145/69
[2020-10-14 12:02] LABS: GLUCOSE,POINT OF CARE 146 MG/DL (70-110)
[2020-10-14 12:36] LABS: GLUCOSE,POINT OF CARE 142 MG/DL (70-110)
[2020-10-14] MEDS: HEPARIN SODIUM 25000 UNITS/D5W 250 ML IV PRN (13:38)
[2020-10-14 16:00] VITALS: BP 116/70
[2020-10-14] MEDS: CefTRIAXone 1 GM/DEXTROSE 50 ML IV SCH (17:04)
[2020-10-14] MEDS ORDERED: SODIUM CHLORIDE 0.9% 250 ML IV ONE (17:57)
[2020-10-14 20:00] VITALS: BP 104/67
[2020-10-14] MEDS: AZITHROMYCIN 500 MG/NS 250 ML IV SCH (20:53)
[2020-10-14 22:43] LABS: GLUCOSE,POINT OF CARE 168 MG/DL (70-110)
[2020-10-14 23:22] LABS: GLUCOSE,POINT OF CARE 186 MG/DL (70-110)
[2020-10-15] VITALS: BP 114/65
[2020-10-15] MEDS: ALPRAZolam 0.25 MG TABLET PO PRN ×2 (03:14→22:12)
[2020-10-15 04:00] VITALS: BP 127/69
[2020-10-15 05:35] LABS: BASOPHILS % (AUTO) 0.5 % (0.0-2.0); EOSINOPHILS % (AUTO) 0.9 % (1.0-6.0); HEMATOCRIT 41.1 % (41-53); HEMOGLOBIN 13.6 g/dL (13.5-17.5); LYMPHOCYTES # (AUTO) 0.5 K/uL (1.0-4.8); LYMPHOCYTES % (AUTO) 3.1 % (22.0-44.0); MEAN CORPUSCULAR HEMOGLOBIN 29.2 pg (26.0-34.0); MEAN CORPUSCULAR VOLUME 89 fL (80-100); MONOCYTES # (AUTO) 0.4 K/uL (0.1-1.0); MONOCYTES % (AUTO) 2.2 % (2.0-9.0); NEUTROPHILS # (AUTO) 14.7 K/uL (1.8-7.7); PLATELET COUNT (AUTO) 356 K/uL (150-450); RED BLOOD CELL COUNT(AUTO) 4.65 MIL/uL (4.50-5.90); RED CELL DISTRIBUTION WIDTH 14.5 % (11.5-14.5)
[2020-10-15 06:30] LABS: NEUTROPHILS % (AUTO) 93.3 % (40.0-70.0)
[2020-10-15 06:31] LABS: GLUCOSE,POINT OF CARE 177 MG/DL (70-110)
[2020-10-15 06:32] LABS: ALANINE AMINOTRANSFERASE 183 U/L (12-78); ALBUMIN 1.7 g/dL (3.4-5.0); ALKALINE PHOSPHATASE 345 U/L (46-116); ANION GAP 5 mmol/L (8-16); ASPARTATE AMINOTRANSFERASE 127 U/L (15-37); BILIRUBIN,TOTAL 0.5 mg/dL (0.1-1.0); CALCIUM, TOTAL 8.4 mg/dL (8.8-10.5); CARBON DIOXIDE 26 mmol/L (22-29); CHLORIDE 100 mmol/L (98-107); CREATININE 0.64 mg/dL (0.60-1.30); GLOMERULAR FILTR. RATE CALC > 60 mL/min (>60); GLUCOSE,RANDOM 224 mg/dL (70-110); POTASSIUM 4.1 mmol/L (3.5-5.1); SODIUM SERUM 131 mmol/L (136-145); UREA NITROGEN, BLOOD 18 mg/dL (7-18)
[2020-10-15] MEDS: INSULIN LISPRO 100 UNITS/ML SQ PRN ×4 (06:42→20:56)
[2020-10-15] MEDS: HEPARIN SODIUM 25000 UNITS/D5W 250 ML IV PRN (07:35)
[2020-10-15 08:00] VITALS: BP 118/68
[2020-10-15] MEDS: ATORVASTATIN CALCIUM 40 MG TABLET PO SCH (09:03)
[2020-10-15] MEDS: DEXAMETHASONE SOD PHOS 4 MG/ML VIAL IVP SCH (09:03)
[2020-10-15] MEDS: METOPROLOL SUCCINATE 50 MG ER TABLET PO SCH (09:03)
[2020-10-15] MEDS: MONTELUKAST SODIUM 10 MG TABLET PO SCH (09:03)
[2020-10-15] MEDS: ASPIRIN 81 MG CHEWABLE TABLET PO SCH (09:03)
[2020-10-15] MEDS: DOCUSATE SODIUM 100 MG CAPSULE PO SCH ×2 (09:04→20:43)
[2020-10-15] MEDS: INSULIN GLARGINE,HUM.REC.ANLOG 100 UNITS/ML SQ SCH ×2 (09:09→20:55)
[2020-10-15 12:00] VITALS: BP 121/72
[2020-10-15] MEDS: AmLODIPine BESYLATE 5 MG TABLET PO SCH (12:45)
[2020-10-15 16:00] VITALS: BP 125/75
[2020-10-15 17:20] LABS: GLUCOSE,POINT OF CARE 270 MG/DL (70-110)
[2020-10-15 17:20] LABS: GLUCOSE,POINT OF CARE 241 MG/DL (70-110)
[2020-10-15 17:21] LABS: GLUCOSE,POINT OF CARE 224 MG/DL (70-110)
[2020-10-15] MEDS ORDERED: SODIUM CHLORIDE 0.9% 250 ML IV ONE (17:48)
[2020-10-15] MEDS: CefTRIAXone 1 GM/DEXTROSE 50 ML IV SCH (17:55)
[2020-10-15] MEDS: AZITHROMYCIN 500 MG/NS 250 ML IV SCH (20:43)
[2020-10-15 21:16] LABS: GLUCOSE,POINT OF CARE 236 MG/DL (70-110)
[2020-10-15] MEDS: ACETAMINOPHEN 325 MG TABLET PO PRN (22:17)
[2020-10-16] VITALS: BP 98/58
[2020-10-16] MEDS: HEPARIN SODIUM 25000 UNITS/D5W 250 ML IV PRN ×2 (01:47→19:03)
[2020-10-16 04:00] VITALS: BP 109/62
[2020-10-16 05:40] LABS: BASOPHILS % (AUTO) 0.2 % (0.0-2.0); EOSINOPHILS % (AUTO) 0.3 % (1.0-6.0); HEMATOCRIT 39.3 % (41-53); HEMOGLOBIN 12.3 g/dL (13.5-17.5); LYMPHOCYTES # (AUTO) 0.5 K/uL (1.0-4.8); LYMPHOCYTES % (AUTO) 2.9 % (22.0-44.0); MEAN CORPUSCULAR HEMOGLOBIN 28.8 pg (26.0-34.0); MEAN CORPUSCULAR HGB CONC 31.4 G/dL (31.0-37.0); MEAN CORPUSCULAR VOLUME 92 fL (80-100); MONOCYTES # (AUTO) 0.4 K/uL (0.1-1.0); MONOCYTES % (AUTO) 2.2 % (2.0-9.0); NEUTROPHILS # (AUTO) 16.8 K/uL (1.8-7.7); PLATELET COUNT (AUTO) 299 K/uL (150-450); RED BLOOD CELL COUNT(AUTO) 4.29 MIL/uL (4.50-5.90); RED CELL DISTRIBUTION WIDTH 15.1 % (11.5-14.5)
[2020-10-16 05:54] LABS: NEUTROPHILS % (AUTO) 94.4 % (40.0-70.0)
[2020-10-16 06:08] LABS: ALANINE AMINOTRANSFERASE 118 U/L (12-78); ALBUMIN 1.5 g/dL (3.4-5.0); ALKALINE PHOSPHATASE 284 U/L (46-116); ANION GAP 11 mmol/L (8-16); ASPARTATE AMINOTRANSFERASE 63 U/L (15-37); BILIRUBIN,TOTAL 0.4 mg/dL (0.1-1.0); CALCIUM, TOTAL 7.7 mg/dL (8.8-10.5); CARBON DIOXIDE 24 mmol/L (22-29); CHLORIDE 88 mmol/L (98-107); CREATININE 0.86 mg/dL (0.60-1.30); GLOMERULAR FILTR. RATE CALC > 60 mL/min (>60); POTASSIUM 3.3 mmol/L (3.5-5.1); TOTAL PROTEIN, SERUM 5.5 g/dL (6.4-8.2); UREA NITROGEN, BLOOD 13 mg/dL (7-18)
[2020-10-16 06:19] LABS: SODIUM SERUM 123 mmol/L (136-145)
[2020-10-16 06:20] LABS: GLUCOSE,RANDOM 567 mg/dL (70-110)
[2020-10-16 06:59] LABS: GLUCOSE,POINT OF CARE 124 MG/DL (70-110)
[2020-10-16 07:22] LABS: ANION GAP 4 mmol/L (8-16); CALCIUM, TOTAL 8.3 mg/dL (8.8-10.5); CARBON DIOXIDE 30 mmol/L (22-29); CHLORIDE 102 mmol/L (98-107); CREATININE 0.65 mg/dL (0.60-1.30); GLOMERULAR FILTR. RATE CALC > 60 mL/min (>60); GLUCOSE,RANDOM 110 mg/dL (70-110); POTASSIUM 3.5 mmol/L (3.5-5.1); SODIUM SERUM 136 mmol/L (136-145); UREA NITROGEN, BLOOD 13 mg/dL (7-18)
[2020-10-16 08:00] VITALS: BP 118/65
[2020-10-16] MEDS: DOCUSATE SODIUM 100 MG CAPSULE PO SCH ×2 (08:30→20:51)
[2020-10-16] MEDS: DEXAMETHASONE SOD PHOS 4 MG/ML VIAL IVP SCH (08:30)
[2020-10-16] MEDS: METOPROLOL SUCCINATE 50 MG ER TABLET PO SCH (08:30)
[2020-10-16] MEDS: AmLODIPine BESYLATE 5 MG TABLET PO SCH (08:31)
[2020-10-16] MEDS: ATORVASTATIN CALCIUM 40 MG TABLET PO SCH (08:31)
[2020-10-16] MEDS: ASPIRIN 81 MG CHEWABLE TABLET PO SCH (08:31)
[2020-10-16] MEDS: MONTELUKAST SODIUM 10 MG TABLET PO SCH (08:31)
[2020-10-16] MEDS: INSULIN GLARGINE,HUM.REC.ANLOG 100 UNITS/ML SQ SCH ×2 (08:32→20:52)
[2020-10-16] MEDS: ALPRAZolam 0.25 MG TABLET PO PRN ×2 (08:50→15:55)
[2020-10-16 12:00] VITALS: BP 122/70
[2020-10-16] MEDS: INSULIN LISPRO 100 UNITS/ML SQ PRN ×3 (12:01→20:52)
[2020-10-16] MEDS ORDERED: BISACODYL 10 MG RECTAL RECTAL SUPPOSITORY PR PRN (14:15)
[2020-10-16] MEDS: MAGNESIUM HYDROXIDE SUSPENSION 30 ML UDCUP PO PRN (15:55)
[2020-10-16 16:00] VITALS: BP 115/61
[2020-10-16] MEDS: CefTRIAXone 1 GM/DEXTROSE 50 ML IV SCH (17:56)
[2020-10-16 18:09] LABS: GLUCOSE,POINT OF CARE 210 MG/DL (70-110)
[2020-10-16 18:09] LABS: GLUCOSE,POINT OF CARE 211 MG/DL (70-110)
[2020-10-16 18:09] LABS: GLUCOSE,POINT OF CARE 108 MG/DL (70-110)
[2020-10-16 20:00] VITALS: BP 111/51
[2020-10-16] MEDS: AZITHROMYCIN 500 MG/NS 250 ML IV SCH (20:51)
[2020-10-16] MEDS: LORazepam 2 MG/ML VIAL IVP PRN (20:53)
[2020-10-16 23:29] LABS: GLUCOSE,POINT OF CARE 339 MG/DL (70-110)
[2020-10-17] VITALS: BP 94/63
[2020-10-17] MEDS ORDERED: SODIUM CHLORIDE 0.9% 250 ML IV ONE (00:04)
[2020-10-17] MEDS: ALPRAZolam 0.25 MG TABLET PO PRN ×3 (00:08→20:02)
[2020-10-17] MEDS: ACETAMINOPHEN 325 MG TABLET PO PRN ×4 (03:20→18:26)
[2020-10-17 04:00] VITALS: BP 123/67
[2020-10-17 06:12] LABS: GLUCOSE,POINT OF CARE 72 MG/DL (70-110)
[2020-10-17 07:02] LABS: ALANINE AMINOTRANSFERASE 102 U/L (12-78); ALBUMIN 1.8 g/dL (3.4-5.0); ALKALINE PHOSPHATASE 329 U/L (46-116); ANION GAP 2 mmol/L (8-16); ASPARTATE AMINOTRANSFERASE 46 U/L (15-37); BILIRUBIN,TOTAL 0.4 mg/dL (0.1-1.0); CALCIUM, TOTAL 8.8 mg/dL (8.8-10.5); CARBON DIOXIDE 31 mmol/L (22-29); CHLORIDE 100 mmol/L (98-107); CREATININE 0.63 mg/dL (0.60-1.30); GLOMERULAR FILTR. RATE CALC > 60 mL/min (>60); GLUCOSE,RANDOM 66 mg/dL (70-110); POTASSIUM 3.7 mmol/L (3.5-5.1); SODIUM SERUM 133 mmol/L (136-145); TOTAL PROTEIN, SERUM 6.3 g/dL (6.4-8.2); UREA NITROGEN, BLOOD 14 mg/dL (7-18)
[2020-10-17 08:00] VITALS: BP 135/72
[2020-10-17] MEDS: DEXAMETHASONE SOD PHOS 4 MG/ML VIAL IVP SCH (09:01)
[2020-10-17] MEDS: ASPIRIN 81 MG CHEWABLE TABLET PO SCH (09:01)
[2020-10-17] MEDS: ATORVASTATIN CALCIUM 40 MG TABLET PO SCH (09:01)
[2020-10-17] MEDS: AmLODIPine BESYLATE 5 MG TABLET PO SCH (09:02)
[2020-10-17] MEDS: METOPROLOL SUCCINATE 50 MG ER TABLET PO SCH (09:02)
[2020-10-17] MEDS: DOCUSATE SODIUM 100 MG CAPSULE PO SCH ×2 (09:02→20:02)
[2020-10-17] MEDS: MONTELUKAST SODIUM 10 MG TABLET PO SCH (09:02)
[2020-10-17 09:10] LABS: BASOPHILS % (AUTO) 0.3 % (0.0-2.0); EOSINOPHILS % (AUTO) 1.8 % (1.0-6.0); HEMATOCRIT 41.4 % (41-53); HEMOGLOBIN 13.7 g/dL (13.5-17.5); LYMPHOCYTES # (AUTO) 0.6 K/uL (1.0-4.8); LYMPHOCYTES % (AUTO) 3.3 % (22.0-44.0); MEAN CORPUSCULAR HGB CONC 33.1 G/dL (31.0-37.0); MEAN CORPUSCULAR VOLUME 88 fL (80-100); MONOCYTES # (AUTO) 0.3 K/uL (0.1-1.0); MONOCYTES % (AUTO) 1.7 % (2.0-9.0); NEUTROPHILS # (AUTO) 17.8 K/uL (1.8-7.7); PLATELET COUNT (AUTO) 395 K/uL (150-450); RED BLOOD CELL COUNT(AUTO) 4.74 MIL/uL (4.50-5.90); RED CELL DISTRIBUTION WIDTH 14.5 % (11.5-14.5)
[2020-10-17 09:11] LABS: NEUTROPHILS % (AUTO) 92.9 % (40.0-70.0)
[2020-10-17] MEDS: INSULIN GLARGINE,HUM.REC.ANLOG 100 UNITS/ML SQ SCH ×2 (09:24→20:58)
[2020-10-17] MEDS: HEPARIN SODIUM 25000 UNITS/D5W 250 ML IV PRN (11:17)
[2020-10-17] MEDS: INSULIN LISPRO 100 UNITS/ML SQ PRN ×3 (11:57→20:57)
[2020-10-17 12:00] VITALS: BP 124/72
[2020-10-17 12:42] LABS: ABG A-A DIFF O2 498.4 mmHg (10-20.0); ABG BASE EXCESS 5.9 mmol/L (-2.0-3.0); ABG CARBOXYHEMOGLOBIN 1.1 % (0.0-1.5); ABG HCO3 29.1 mmol/L (22.0-26.0); ABG METHEMOGLOBIN 0.3 % (0.0-1.5); ABG OXYGEN CONTENT 18.3 mL/dL (15.0-23.0); ABG OXYGEN SATURATION 92.8 % (95.0-98.0); ABG OXYHEMOGLOBIN 91.5 % (94.0-100.0); ABG PCO2 43 mmHg (35-45); ABG PH 7.456 (7.35-7.450); ABG TOTAL HEMOGLOBIN 14.2 G/dL (12.0-18.0); PO2, ARTERIAL BG 62.7 mmHg (79.0-87.0); SOURCE, BLOOD GAS ARTERIAL; TEMPERATURE, FAHRENHEIT, BG 98.6 FAHREN (96.0-98.6)
[2020-10-17 12:43] LABS: O2 DEVICE,BLOOD GAS BIPAP (ROOM AIR); SITE, BLOOD GAS RT RADIAL
[2020-10-17 12:44] LABS: SPONTANEOUS VT, BG 655 ml
[2020-10-17 14:33] LABS: GLUCOSE,POINT OF CARE 204 MG/DL (70-110)
[2020-10-17 16:00] VITALS: BP 117/62
[2020-10-17 17:25] LABS: GLUCOSE,POINT OF CARE 182 MG/DL (70-110)
[2020-10-17] MEDS: CefTRIAXone 1 GM/DEXTROSE 50 ML IV SCH (18:27)
[2020-10-17 20:00] VITALS: BP 128/73
[2020-10-17] MEDS: AZITHROMYCIN 500 MG/NS 250 ML IV SCH (20:02)
[2020-10-17] MEDS: MELATONIN 3 MG TABLET PO PRN (20:02)
[2020-10-17 20:49] LABS: GLUCOSE,POINT OF CARE 240 MG/DL (70-110)
[2020-10-18] VITALS: BP 86/50
[2020-10-18 01:07] LABS: GLUCOSE,POINT OF CARE 231 MG/DL (70-110)
[2020-10-18] MEDS: HEPARIN SODIUM 25000 UNITS/D5W 250 ML IV PRN ×2 (02:27→15:17)
[2020-10-18 04:00] VITALS: BP 118/70
[2020-10-18 06:09] LABS: EOSINOPHILS % (AUTO) 0.7 % (1.0-6.0); HEMATOCRIT 38.2 % (41-53); HEMOGLOBIN 12.5 g/dL (13.5-17.5); LYMPHOCYTES % (AUTO) 6.9 % (22.0-44.0); MEAN CORPUSCULAR HEMOGLOBIN 28.7 pg (26.0-34.0); MEAN CORPUSCULAR HGB CONC 32.8 G/dL (31.0-37.0); MEAN CORPUSCULAR VOLUME 87 fL (80-100); MONOCYTES # (AUTO) 0.2 K/uL (0.1-1.0); MONOCYTES % (AUTO) 1.1 % (2.0-9.0); NEUTROPHILS # (AUTO) 13.4 K/uL (1.8-7.7); PLATELET COUNT (AUTO) 334 K/uL (150-450); RED BLOOD CELL COUNT(AUTO) 4.37 MIL/uL (4.50-5.90); RED CELL DISTRIBUTION WIDTH 14.9 % (11.5-14.5)
[2020-10-18 06:34] LABS: NEUTROPHILS % (AUTO) 91.3 % (40.0-70.0)
[2020-10-18 06:39] LABS: ALANINE AMINOTRANSFERASE 94 U/L (12-78); ALBUMIN 1.4 g/dL (3.4-5.0); ALKALINE PHOSPHATASE 316 U/L (46-116); ANION GAP 3 mmol/L (8-16); ASPARTATE AMINOTRANSFERASE 57 U/L (15-37); BILIRUBIN,TOTAL 0.4 mg/dL (0.1-1.0); CALCIUM, TOTAL 8.4 mg/dL (8.8-10.5); CARBON DIOXIDE 32 mmol/L (22-29); CHLORIDE 101 mmol/L (98-107); CREATININE 0.54 mg/dL (0.60-1.30); GLOMERULAR FILTR. RATE CALC > 60 mL/min (>60); GLUCOSE,RANDOM 81 mg/dL (70-110); POTASSIUM 3.8 mmol/L (3.5-5.1); SODIUM SERUM 136 mmol/L (136-145); TOTAL PROTEIN, SERUM 5.9 g/dL (6.4-8.2); UREA NITROGEN, BLOOD 17 mg/dL (7-18)
[2020-10-18 08:00] VITALS: BP 128/67
[2020-10-18] MEDS: INSULIN GLARGINE,HUM.REC.ANLOG 100 UNITS/ML SQ SCH ×2 (09:00→21:41)
[2020-10-18] MEDS: ASPIRIN 81 MG CHEWABLE TABLET PO SCH (09:05)
[2020-10-18] MEDS: MONTELUKAST SODIUM 10 MG TABLET PO SCH (09:05)
[2020-10-18] MEDS: DOCUSATE SODIUM 100 MG CAPSULE PO SCH ×2 (09:06→21:05)
[2020-10-18] MEDS: METOPROLOL SUCCINATE 50 MG ER TABLET PO SCH (09:06)
[2020-10-18] MEDS: ATORVASTATIN CALCIUM 40 MG TABLET PO SCH (09:07)
[2020-10-18] MEDS: DEXAMETHASONE SOD PHOS 4 MG/ML VIAL IVP SCH (09:08)
[2020-10-18 09:14] LABS: GLUCOSE,POINT OF CARE 76 MG/DL (70-110)
[2020-10-18] MEDS: AmLODIPine BESYLATE 5 MG TABLET PO SCH (10:24)
[2020-10-18 12:00] VITALS: BP 131/107
[2020-10-18] MEDS: INSULIN LISPRO 100 UNITS/ML SQ PRN ×3 (12:26→21:42)
[2020-10-18 12:28] LABS: GLUCOSE,POINT OF CARE 78 MG/DL (70-110)
[2020-10-18] MEDS ORDERED: SODIUM CHLORIDE 0.9% 250 ML IV ONE ×2 (15:13→21:01)
[2020-10-18 16:00] VITALS: BP 120/67
[2020-10-18] MEDS: CefTRIAXone 1 GM/DEXTROSE 50 ML IV SCH (17:51)
[2020-10-18 18:06] LABS: GLUCOSE,POINT OF CARE 214 MG/DL (70-110)
[2020-10-18 20:00] VITALS: BP 123/72
[2020-10-18] MEDS: AZITHROMYCIN 500 MG/NS 250 ML IV SCH (21:05)
[2020-10-18] MEDS: ALPRAZolam 0.25 MG TABLET PO PRN (22:37)
[2020-10-18] MEDS: MELATONIN 3 MG TABLET PO PRN (22:37)
[2020-10-19] VITALS: BP 117/68
[2020-10-19] LABS: GLUCOSE,POINT OF CARE 212 MG/DL (70-110)
[2020-10-19] MEDS: LORazepam 2 MG/ML VIAL IVP PRN (01:16)
[2020-10-19 04:00] VITALS: BP 125/65
[2020-10-19] MEDS: HEPARIN SODIUM 25000 UNITS/D5W 250 ML IV PRN ×2 (05:25→22:38)
[2020-10-19] MEDS: INSULIN LISPRO 100 UNITS/ML SQ PRN ×4 (05:50→23:56)
[2020-10-19 07:01] LABS: GLUCOSE,POINT OF CARE 173 MG/DL (70-110)
[2020-10-19 07:05] LABS: BASOPHILS % (AUTO) 0.3 % (0.0-2.0); EOSINOPHILS % (AUTO) 1.3 % (1.0-6.0); HEMATOCRIT 38.7 % (41-53); HEMOGLOBIN 12.8 g/dL (13.5-17.5); LYMPHOCYTES # (AUTO) 0.7 K/uL (1.0-4.8); LYMPHOCYTES % (AUTO) 4.3 % (22.0-44.0); MEAN CORPUSCULAR HEMOGLOBIN 29.2 pg (26.0-34.0); MEAN CORPUSCULAR HGB CONC 33.2 G/dL (31.0-37.0); MEAN CORPUSCULAR VOLUME 88 fL (80-100); MONOCYTES # (AUTO) 0.4 K/uL (0.1-1.0); MONOCYTES % (AUTO) 2.8 % (2.0-9.0); NEUTROPHILS # (AUTO) 14.5 K/uL (1.8-7.7); PLATELET COUNT (AUTO) 317 K/uL (150-450); RED BLOOD CELL COUNT(AUTO) 4.39 MIL/uL (4.50-5.90); RED CELL DISTRIBUTION WIDTH 14.9 % (11.5-14.5)
[2020-10-19 07:28] LABS: ALANINE AMINOTRANSFERASE 87 U/L (12-78); ALBUMIN 1.7 g/dL (3.4-5.0); ALKALINE PHOSPHATASE 317 U/L (46-116); ANION GAP 5 mmol/L (8-16); ASPARTATE AMINOTRANSFERASE 49 U/L (15-37); BILIRUBIN,TOTAL 0.4 mg/dL (0.1-1.0); CALCIUM, TOTAL 8.4 mg/dL (8.8-10.5); CARBON DIOXIDE 32 mmol/L (22-29); CHLORIDE 101 mmol/L (98-107); CREATININE 0.58 mg/dL (0.60-1.30); GLOMERULAR FILTR. RATE CALC > 60 mL/min (>60); GLUCOSE,RANDOM 149 mg/dL (70-110); POTASSIUM 3.8 mmol/L (3.5-5.1); SODIUM SERUM 138 mmol/L (136-145); TOTAL PROTEIN, SERUM 6.1 g/dL (6.4-8.2); UREA NITROGEN, BLOOD 16 mg/dL (7-18)
[2020-10-19 07:34] LABS: NEUTROPHILS % (AUTO) 91.3 % (40.0-70.0)
[2020-10-19 08:00] VITALS: BP 129/73
[2020-10-19] MEDS: DOCUSATE SODIUM 100 MG CAPSULE PO SCH ×2 (08:04→20:30)
[2020-10-19] MEDS: AmLODIPine BESYLATE 5 MG TABLET PO SCH (08:04)
[2020-10-19] MEDS: ATORVASTATIN CALCIUM 40 MG TABLET PO SCH (08:05)
[2020-10-19] MEDS: METOPROLOL SUCCINATE 50 MG ER TABLET PO SCH (08:05)
[2020-10-19] MEDS: MONTELUKAST SODIUM 10 MG TABLET PO SCH (08:05)
[2020-10-19] MEDS: ASPIRIN 81 MG CHEWABLE TABLET PO SCH (08:05)
[2020-10-19] MEDS: DEXAMETHASONE SOD PHOS 4 MG/ML VIAL IVP SCH (08:06)
[2020-10-19] MEDS: INSULIN GLARGINE,HUM.REC.ANLOG 100 UNITS/ML SQ SCH ×2 (08:23→21:43)
[2020-10-19] MEDS ORDERED: SODIUM CHLORIDE 0.9% 500 ML IV ONE (08:53)
[2020-10-19] MEDS ORDERED: SUCCINYLCHOLINE CHLORIDE 20 MG/ML 10 ML VIAL IVP ONE (09:00)
[2020-10-19] MEDS ORDERED: ROCURONIUM BROMIDE 10 MG/ML 5 ML VIAL IVP ONE (09:00)
[2020-10-19] MEDS ORDERED: PROPOFOL 1000 MG/ISO-OSM 100 ML IV ONE ×2 (09:03→11:45)
[2020-10-19 10:33] LABS: ABG A-A DIFF O2 457.6 mmHg (10-20.0); ABG BASE EXCESS 9.9 mmol/L (-2.0-3.0); ABG CARBOXYHEMOGLOBIN 0.6 % (0.0-1.5); ABG HCO3 28.8 mmol/L (22.0-26.0); ABG METHEMOGLOBIN 0.4 % (0.0-1.5); ABG OXYGEN CONTENT 20.6 mL/dL (15.0-23.0); ABG OXYGEN SATURATION 97.3 % (95.0-98.0); ABG OXYHEMOGLOBIN 96.3 % (94.0-100.0); ABG TOTAL HEMOGLOBIN 15.1 G/dL (12.0-18.0); PO2, ARTERIAL BG 128.5 mmHg (79.0-87.0); SOURCE, BLOOD GAS ARTERIAL; TEMPERATURE, FAHRENHEIT, BG 98.6 FAHREN (96.0-98.6)
[2020-10-19 10:34] LABS: ABG PCO2 127 mmHg (35-45); O2 DEVICE,BLOOD GAS VENTILATOR (ROOM AIR); SITE, BLOOD GAS ARTERIAL LINE; VT, ABG 450 ml
[2020-10-19 10:35] LABS: PEEP,BG 10 cm H2O
[2020-10-19] MEDS: FentaNYL CITRATE PF 500 MCG in DEXTROSE 5%-WATER 90 ML IV PRN ×3 (11:50→20:52)
[2020-10-19 12:00] VITALS: BP 174/54
[2020-10-19 12:14] LABS: ABG A-A DIFF O2 563.7 mmHg (10-20.0); ABG BASE EXCESS 5.1 mmol/L (-2.0-3.0); ABG HCO3 26.2 mmol/L (22.0-26.0); ABG METHEMOGLOBIN 0.1 % (0.0-1.5); ABG OXYGEN CONTENT 17.9 mL/dL (15.0-23.0); ABG OXYGEN SATURATION 88.6 % (95.0-98.0); ABG OXYHEMOGLOBIN 87.6 % (94.0-100.0); ABG PH 7.214 (7.35-7.450); ABG TOTAL HEMOGLOBIN 14.5 G/dL (12.0-18.0); PO2, ARTERIAL BG 65.9 mmHg (79.0-87.0); SOURCE, BLOOD GAS ARTERIAL; TEMPERATURE, FAHRENHEIT, BG 98.6 FAHREN (96.0-98.6)
[2020-10-19 12:15] LABS: ABG PCO2 83 mmHg (35-45); O2 DEVICE,BLOOD GAS VENTILATOR (ROOM AIR); PEEP,BG 10 cm H2O; SITE, BLOOD GAS ARTERIAL LINE; VT, ABG 450 ml
[2020-10-19] MEDS: PROPOFOL 1000 MG/ISO-OSM 100 ML IV PRN ×3 (15:20→23:40)
[2020-10-19 16:00] VITALS: BP 113/45
[2020-10-19 16:45] LABS: GLUCOSE,POINT OF CARE 255 MG/DL (70-110)
[2020-10-19 16:45] LABS: GLUCOSE,POINT OF CARE 179 MG/DL (70-110)
[2020-10-19] MEDS: CefTRIAXone 1 GM/DEXTROSE 50 ML IV SCH (17:15)
[2020-10-19] MEDS ORDERED: SODIUM CHLORIDE 0.9% 250 ML IV ONE (18:44)
[2020-10-19 20:00] VITALS: BP 105/44
[2020-10-19] MEDS: AZITHROMYCIN 500 MG/NS 250 ML IV SCH (20:30)
[2020-10-19 23:41] LABS: GLUCOSE,POINT OF CARE 205 MG/DL (70-110)
[2020-10-20] VITALS: BP 114/46
[2020-10-20 02:34] LABS: GLUCOSE,POINT OF CARE 122 MG/DL (70-110)
[2020-10-20] MEDS: FentaNYL CITRATE PF 500 MCG in DEXTROSE 5%-WATER 90 ML IV PRN ×3 (02:57→16:01)
[2020-10-20 04:00] VITALS: BP 119/51
[2020-10-20] MEDS: PROPOFOL 1000 MG/ISO-OSM 100 ML IV PRN ×3 (05:09→23:36)
[2020-10-20 05:49] LABS: BASOPHILS % (AUTO) 0.5 % (0.0-2.0); EOSINOPHILS % (AUTO) 0.3 % (1.0-6.0); HEMATOCRIT 37.6 % (41-53); HEMOGLOBIN 12.3 g/dL (13.5-17.5); LYMPHOCYTES # (AUTO) 0.7 K/uL (1.0-4.8); LYMPHOCYTES % (AUTO) 4.6 % (22.0-44.0); MEAN CORPUSCULAR HEMOGLOBIN 28.9 pg (26.0-34.0); MEAN CORPUSCULAR HGB CONC 32.8 G/dL (31.0-37.0); MEAN CORPUSCULAR VOLUME 88 fL (80-100); MONOCYTES # (AUTO) 0.6 K/uL (0.1-1.0); MONOCYTES % (AUTO) 3.9 % (2.0-9.0); NEUTROPHILS # (AUTO) 13.6 K/uL (1.8-7.7); PLATELET COUNT (AUTO) 297 K/uL (150-450); RED BLOOD CELL COUNT(AUTO) 4.27 MIL/uL (4.50-5.90); RED CELL DISTRIBUTION WIDTH 14.8 % (11.5-14.5)
[2020-10-20 06:05] LABS: ALANINE AMINOTRANSFERASE 64 U/L (12-78); ALBUMIN 1.7 g/dL (3.4-5.0); ALKALINE PHOSPHATASE 269 U/L (46-116); ANION GAP 1 mmol/L (8-16); ASPARTATE AMINOTRANSFERASE 27 U/L (15-37); BILIRUBIN,TOTAL 0.3 mg/dL (0.1-1.0); CALCIUM, TOTAL 8.3 mg/dL (8.8-10.5); CARBON DIOXIDE 35 mmol/L (22-29); CHLORIDE 100 mmol/L (98-107); CREATININE 0.61 mg/dL (0.60-1.30); GLOMERULAR FILTR. RATE CALC > 60 mL/min (>60); GLUCOSE,RANDOM 70 mg/dL (70-110); POTASSIUM 4.2 mmol/L (3.5-5.1); SODIUM SERUM 136 mmol/L (136-145); TOTAL PROTEIN, SERUM 6.2 g/dL (6.4-8.2); UREA NITROGEN, BLOOD 24 mg/dL (7-18)
[2020-10-20 06:16] LABS: NEUTROPHILS % (AUTO) 90.7 % (40.0-70.0)
[2020-10-20 07:11] LABS: GLUCOSE,POINT OF CARE 61 MG/DL (70-110)
[2020-10-20 07:11] LABS: GLUCOSE,POINT OF CARE 161 MG/DL (70-110)
[2020-10-20] MEDS: INSULIN GLARGINE,HUM.REC.ANLOG 100 UNITS/ML SQ SCH ×2 (09:00→21:00)
[2020-10-20] MEDS: METOPROLOL SUCCINATE 50 MG ER TABLET PO SCH (09:00)
[2020-10-20] MEDS: MONTELUKAST SODIUM 10 MG TABLET PO SCH (09:23)
[2020-10-20] MEDS: AmLODIPine BESYLATE 5 MG TABLET PO SCH (09:23)
[2020-10-20] MEDS: ATORVASTATIN CALCIUM 40 MG TABLET PO SCH (09:23)
[2020-10-20] MEDS: DOCUSATE SODIUM 100 MG CAPSULE PO SCH ×2 (09:23→20:55)
[2020-10-20] MEDS: ASPIRIN 81 MG CHEWABLE TABLET PO SCH (09:24)
[2020-10-20] MEDS: DEXAMETHASONE SOD PHOS 4 MG/ML VIAL IVP SCH (09:24)
[2020-10-20 12:00] VITALS: BP 127/49
[2020-10-20] MEDS: INSULIN LISPRO 100 UNITS/ML SQ PRN ×2 (14:39→19:54)
[2020-10-20 15:59] LABS: ABG BASE EXCESS 10.2 mmol/L (-2.0-3.0); ABG CARBOXYHEMOGLOBIN 0.7 % (0.0-1.5); ABG HCO3 31.8 mmol/L (22.0-26.0); ABG METHEMOGLOBIN 0.3 % (0.0-1.5); ABG OXYGEN CONTENT 17.6 mL/dL (15.0-23.0); ABG OXYGEN SATURATION 96.4 % (95.0-98.0); ABG OXYHEMOGLOBIN 95.4 % (94.0-100.0); ABG PCO2 66 mmHg (35-45); ABG PH 7.355 (7.35-7.450); ABG TOTAL HEMOGLOBIN 13.1 G/dL (12.0-18.0); PO2, ARTERIAL BG 79.6 mmHg (79.0-87.0); SOURCE, BLOOD GAS ARTERIAL; TEMPERATURE, FAHRENHEIT, BG 98.6 FAHREN (96.0-98.6)
[2020-10-20 16:00] VITALS: BP 123/49
[2020-10-20 16:02] LABS: O2 DEVICE,BLOOD GAS VENTILATOR (ROOM AIR); PEEP,BG 10 cm H2O; SITE, BLOOD GAS ART-LINE; VT, ABG 450 ml
[2020-10-20 17:45] LABS: GLUCOSE,POINT OF CARE 125 MG/DL (70-110)
[2020-10-20] MEDS: CefTRIAXone 1 GM/DEXTROSE 50 ML IV SCH (17:46)
[2020-10-20 20:00] VITALS: BP 125/51
[2020-10-20] MEDS: AZITHROMYCIN 500 MG/NS 250 ML IV SCH (20:55)
[2020-10-20] MEDS ORDERED: SODIUM CHLORIDE 0.9% 250 ML IV ONE (21:03)
[2020-10-20 21:36] LABS: GLUCOSE,POINT OF CARE 147 MG/DL (70-110)
[2020-10-20] MEDS ORDERED: SODIUM CHLORIDE 0.9% 500 ML IV ONE (22:18)
[2020-10-21] VITALS: BP 135/57
[2020-10-21] MEDS: FentaNYL CITRATE PF 500 MCG in DEXTROSE 5%-WATER 90 ML IV PRN ×5 (00:13→20:49)
[2020-10-21] MEDS: HEPARIN SODIUM 25000 UNITS/D5W 250 ML IV PRN ×2 (02:34→20:47)
[2020-10-21 03:17] LABS: GLUCOSE,POINT OF CARE 110 MG/DL (70-110)
[2020-10-21 04:00] VITALS: BP 150/57
[2020-10-21] MEDS: PROPOFOL 1000 MG/ISO-OSM 100 ML IV PRN ×4 (04:19→20:50)
[2020-10-21 06:24] LABS: BASOPHILS % (AUTO) 0.2 % (0.0-2.0); EOSINOPHILS % (AUTO) 0.5 % (1.0-6.0); HEMATOCRIT 35.4 % (41-53); HEMOGLOBIN 11.6 g/dL (13.5-17.5); LYMPHOCYTES # (AUTO) 0.6 K/uL (1.0-4.8); LYMPHOCYTES % (AUTO) 4.7 % (22.0-44.0); MEAN CORPUSCULAR HGB CONC 32.7 G/dL (31.0-37.0); MEAN CORPUSCULAR VOLUME 89 fL (80-100); MONOCYTES # (AUTO) 0.6 K/uL (0.1-1.0); MONOCYTES % (AUTO) 4.1 % (2.0-9.0); NEUTROPHILS # (AUTO) 12.1 K/uL (1.8-7.7); PLATELET COUNT (AUTO) 245 K/uL (150-450); RED BLOOD CELL COUNT(AUTO) 3.99 MIL/uL (4.50-5.90); RED CELL DISTRIBUTION WIDTH 14.8 % (11.5-14.5)
[2020-10-21 07:10] LABS: ALANINE AMINOTRANSFERASE 50 U/L (12-78); ALBUMIN 1.8 g/dL (3.4-5.0); ALKALINE PHOSPHATASE 202 U/L (46-116); ANION GAP 2 mmol/L (8-16); ASPARTATE AMINOTRANSFERASE 27 U/L (15-37); BILIRUBIN,TOTAL 0.4 mg/dL (0.1-1.0); CARBON DIOXIDE 35 mmol/L (22-29); CHLORIDE 100 mmol/L (98-107); GLOMERULAR FILTR. RATE CALC > 60 mL/min (>60); GLUCOSE,RANDOM 112 mg/dL (70-110); POTASSIUM 4.4 mmol/L (3.5-5.1); SODIUM SERUM 137 mmol/L (136-145); TOTAL PROTEIN, SERUM 5.9 g/dL (6.4-8.2); UREA NITROGEN, BLOOD 21 mg/dL (7-18)
[2020-10-21 07:27] LABS: NEUTROPHILS % (AUTO) 90.5 % (40.0-70.0)
[2020-10-21 08:00] VITALS: BP 138/46
[2020-10-21 08:37] LABS: GLUCOSE,POINT OF CARE 99 MG/DL (70-110)
[2020-10-21] MEDS: INSULIN GLARGINE,HUM.REC.ANLOG 100 UNITS/ML SQ SCH ×2 (09:00→21:30)
[2020-10-21] MEDS: DEXAMETHASONE SOD PHOS 4 MG/ML VIAL IVP SCH (09:55)
[2020-10-21] MEDS: ASPIRIN 81 MG CHEWABLE TABLET PO SCH (09:55)
[2020-10-21] MEDS: MONTELUKAST SODIUM 10 MG TABLET PO SCH (09:56)
[2020-10-21] MEDS: DOCUSATE SODIUM 100 MG CAPSULE PO SCH ×2 (09:56→20:50)
[2020-10-21] MEDS: AmLODIPine BESYLATE 5 MG TABLET PO SCH (09:56)
[2020-10-21] MEDS: METOPROLOL SUCCINATE 50 MG ER TABLET PO SCH (09:56)
[2020-10-21] MEDS: ATORVASTATIN CALCIUM 40 MG TABLET PO SCH (09:56)
[2020-10-21 10:07] LABS: ABG A-A DIFF O2 208.4 mmHg (10-20.0); ABG BASE EXCESS 11.3 mmol/L (-2.0-3.0); ABG CARBOXYHEMOGLOBIN 0.4 % (0.0-1.5); ABG HCO3 32.8 mmol/L (22.0-26.0); ABG METHEMOGLOBIN 0.1 % (0.0-1.5); ABG OXYGEN CONTENT 17.7 mL/dL (15.0-23.0); ABG OXYGEN SATURATION 98.7 % (95.0-98.0); ABG OXYHEMOGLOBIN 98.2 % (94.0-100.0); ABG PCO2 65 mmHg (35-45); ABG PH 7.367 (7.35-7.450); ABG TOTAL HEMOGLOBIN 12.6 G/dL (12.0-18.0); PO2, ARTERIAL BG 147.7 mmHg (79.0-87.0); SOURCE, BLOOD GAS ARTERIAL; TEMPERATURE, FAHRENHEIT, BG 98.6 FAHREN (96.0-98.6)
[2020-10-21 10:08] LABS: O2 DEVICE,BLOOD GAS VENTILATOR (ROOM AIR); PEEP,BG 10 cm H2O; SITE, BLOOD GAS ARTERIAL LINE; VT, ABG 450 ml
[2020-10-21 12:00] VITALS: BP 142/49
[2020-10-21 16:00] VITALS: BP 136/51
[2020-10-21] MEDS: INSULIN LISPRO 100 UNITS/ML SQ PRN (17:22)
[2020-10-21] MEDS: CefTRIAXone 1 GM/DEXTROSE 50 ML IV SCH (17:25)
[2020-10-21] MEDS: ALPRAZolam 0.25 MG TABLET PO PRN (18:46)
[2020-10-21 20:00] VITALS: BP 124/50
[2020-10-21] MEDS: AZITHROMYCIN 500 MG/NS 250 ML IV SCH (20:48)
[2020-10-21] MEDS: MELATONIN 3 MG TABLET PO PRN (20:49)
[2020-10-22] VITALS: BP 115/46
[2020-10-22] MEDS: INSULIN LISPRO 100 UNITS/ML SQ PRN ×4 (00:23→18:21)
[2020-10-22] MEDS ORDERED: SODIUM CHLORIDE 0.9% 250 ML IV ONE ×2 (00:36→22:04)
[2020-10-22] MEDS: PROPOFOL 1000 MG/ISO-OSM 100 ML IV PRN ×4 (00:40→17:25)
[2020-10-22 04:00] VITALS: BP 117/47
[2020-10-22 06:00] LABS: GLUCOSE,POINT OF CARE 119 MG/DL (70-110)
[2020-10-22 06:01] LABS: GLUCOSE,POINT OF CARE 125 MG/DL (70-110)
[2020-10-22] MEDS: FentaNYL CITRATE PF 500 MCG in DEXTROSE 5%-WATER 90 ML IV PRN ×3 (06:08→20:09)
[2020-10-22 06:25] LABS: BASOPHILS % (AUTO) 0.1 % (0.0-2.0); EOSINOPHILS % (AUTO) 0.1 % (1.0-6.0); HEMATOCRIT 34.3 % (41-53); HEMOGLOBIN 11.1 g/dL (13.5-17.5); LYMPHOCYTES # (AUTO) 0.5 K/uL (1.0-4.8); LYMPHOCYTES % (AUTO) 4.5 % (22.0-44.0); MEAN CORPUSCULAR HEMOGLOBIN 28.6 pg (26.0-34.0); MEAN CORPUSCULAR HGB CONC 32.4 G/dL (31.0-37.0); MEAN CORPUSCULAR VOLUME 88 fL (80-100); MONOCYTES # (AUTO) 0.4 K/uL (0.1-1.0); MONOCYTES % (AUTO) 3.6 % (2.0-9.0); PLATELET COUNT (AUTO) 245 K/uL (150-450); RED BLOOD CELL COUNT(AUTO) 3.89 MIL/uL (4.50-5.90); RED CELL DISTRIBUTION WIDTH 14.3 % (11.5-14.5)
[2020-10-22 06:36] LABS: ANION GAP -2 mmol/L (8-16); CARBON DIOXIDE 37 mmol/L (22-29); CHLORIDE 96 mmol/L (98-107); CREATININE 0.51 mg/dL (0.60-1.30); GLUCOSE,RANDOM 150 mg/dL (70-110); POTASSIUM 4.6 mmol/L (3.5-5.1); SODIUM SERUM 131 mmol/L (136-145); UREA NITROGEN, BLOOD 22 mg/dL (7-18)
[2020-10-22 06:37] LABS: CALCIUM, TOTAL 8.4 mg/dL (8.8-10.5); GLOMERULAR FILTR. RATE CALC > 60 mL/min (>60)
[2020-10-22 06:42] LABS: NEUTROPHILS % (AUTO) 91.7 % (40.0-70.0)
[2020-10-22 07:04] LABS: GLUCOSE,POINT OF CARE 183 MG/DL (70-110)
[2020-10-22 07:04] LABS: GLUCOSE,POINT OF CARE 197 MG/DL (70-110)
[2020-10-22 07:04] LABS: GLUCOSE,POINT OF CARE 139 MG/DL (70-110)
[2020-10-22 08:00] VITALS: BP 129/52
[2020-10-22] MEDS: DEXAMETHASONE SOD PHOS 4 MG/ML VIAL IVP SCH (08:13)
[2020-10-22] MEDS: INSULIN GLARGINE,HUM.REC.ANLOG 100 UNITS/ML SQ SCH ×2 (08:44→21:23)
[2020-10-22 10:05] LABS: GLUCOSE,POINT OF CARE 121 MG/DL (70-110)
[2020-10-22] MEDS: MONTELUKAST SODIUM 10 MG TABLET PO SCH (10:08)
[2020-10-22] MEDS: AmLODIPine BESYLATE 5 MG TABLET PO SCH (10:08)
[2020-10-22] MEDS: ATORVASTATIN CALCIUM 40 MG TABLET PO SCH (10:08)
[2020-10-22] MEDS: DOCUSATE SODIUM 100 MG CAPSULE PO SCH ×2 (10:09→20:08)
[2020-10-22] MEDS: ASPIRIN 81 MG CHEWABLE TABLET PO SCH (10:09)
[2020-10-22] MEDS: METOPROLOL SUCCINATE 50 MG ER TABLET PO SCH (10:09)
[2020-10-22] MEDS: HEPARIN SODIUM 25000 UNITS/D5W 250 ML IV PRN (11:56)
[2020-10-22 12:00] VITALS: BP 130/49
[2020-10-22 16:00] VITALS: BP 121/51
[2020-10-22 16:46] LABS: GLUCOSE,POINT OF CARE 193 MG/DL (70-110)
[2020-10-22] MEDS: CefTRIAXone 1 GM/DEXTROSE 50 ML IV SCH (16:53)
[2020-10-22 18:46] LABS: GLUCOSE,POINT OF CARE 152 MG/DL (70-110)
[2020-10-22 20:00] VITALS: BP 131/56
[2020-10-22] MEDS: AZITHROMYCIN 500 MG/NS 250 ML IV SCH (20:08)
[2020-10-22] MEDS: MAGNESIUM HYDROXIDE SUSPENSION 30 ML UDCUP PO PRN (20:08)
[2020-10-22] MEDS: MELATONIN 3 MG TABLET PO PRN (20:18)
[2020-10-22 23:08] LABS: GLUCOSE,POINT OF CARE 153 MG/DL (70-110)
[2020-10-23] VITALS: BP 125/52
[2020-10-23] MEDS: PROPOFOL 1000 MG/ISO-OSM 100 ML IV PRN ×5 (01:23→21:17)
[2020-10-23 04:00] VITALS: BP 128/53
[2020-10-23] MEDS: FentaNYL CITRATE PF 500 MCG in DEXTROSE 5%-WATER 90 ML IV PRN ×4 (04:10→22:51)
[2020-10-23] MEDS: INSULIN LISPRO 100 UNITS/ML SQ PRN ×2 (05:23→17:47)
[2020-10-23] MEDS: HEPARIN SODIUM 25000 UNITS/D5W 250 ML IV PRN (05:27)
[2020-10-23 05:48] LABS: D-DIMER 1.72 mg/L FEU (0.00-0.50)
[2020-10-23 06:16] LABS: C-REACTIVE PROTEIN QUANT 2.98 mg/dL (0.00-0.30)
[2020-10-23 06:38] LABS: GLUCOSE,POINT OF CARE 138 MG/DL (70-110)
[2020-10-23 08:00] VITALS: BP 131/55
[2020-10-23] MEDS: DOCUSATE SODIUM 100 MG CAPSULE PO SCH ×2 (08:37→21:16)
[2020-10-23] MEDS: ASPIRIN 81 MG CHEWABLE TABLET PO SCH (08:37)
[2020-10-23] MEDS: METOPROLOL SUCCINATE 50 MG ER TABLET PO SCH (08:37)
[2020-10-23] MEDS: ATORVASTATIN CALCIUM 40 MG TABLET PO SCH (08:37)
[2020-10-23] MEDS: AmLODIPine BESYLATE 5 MG TABLET PO SCH (08:37)
[2020-10-23] MEDS: MONTELUKAST SODIUM 10 MG TABLET PO SCH (08:37)
[2020-10-23] MEDS: DEXAMETHASONE SOD PHOS 4 MG/ML VIAL IVP SCH (08:38)
[2020-10-23] MEDS: INSULIN GLARGINE,HUM.REC.ANLOG 100 UNITS/ML SQ SCH ×2 (09:00→21:29)
[2020-10-23 09:38] LABS: GLUCOSE,POINT OF CARE 87 MG/DL (70-110)
[2020-10-23 12:00] VITALS: BP 142/54
[2020-10-23 12:43] LABS: GLUCOSE,POINT OF CARE 123 MG/DL (70-110)
[2020-10-23 16:00] VITALS: BP 113/50
[2020-10-23] MEDS: CefTRIAXone 1 GM/DEXTROSE 50 ML IV SCH (18:34)
[2020-10-23 18:57] LABS: GLUCOSE,POINT OF CARE 185 MG/DL (70-110)
[2020-10-23 20:00] VITALS: BP 109/49
[2020-10-23] MEDS: AZITHROMYCIN 500 MG/NS 250 ML IV SCH (21:20)
[2020-10-23 23:40] LABS: GLUCOSE,POINT OF CARE 166 MG/DL (70-110)
[2020-10-24] VITALS: BP 127/52
[2020-10-24] MEDS: INSULIN LISPRO 100 UNITS/ML SQ PRN ×4 (00:58→18:14)
[2020-10-24] MEDS: PROPOFOL 1000 MG/ISO-OSM 100 ML IV PRN ×5 (00:58→20:37)
[2020-10-24 01:33] LABS: GLUCOSE,POINT OF CARE 157 MG/DL (70-110)
[2020-10-24 04:00] VITALS: BP 144/50
[2020-10-24] MEDS ORDERED: SODIUM CHLORIDE 0.9% 500 ML IV ONE ×2 (04:21→23:56)
[2020-10-24] MEDS: FentaNYL CITRATE PF 500 MCG in DEXTROSE 5%-WATER 90 ML IV PRN ×3 (04:24→17:08)
[2020-10-24 06:08] LABS: D-DIMER 1.89 mg/L FEU (0.00-0.50)
[2020-10-24 06:34] LABS: C-REACTIVE PROTEIN QUANT 2.91 mg/dL (0.00-0.30)
[2020-10-24 08:00] VITALS: BP 123/44
[2020-10-24] MEDS: ASPIRIN 81 MG CHEWABLE TABLET PO SCH (09:19)
[2020-10-24] MEDS: ATORVASTATIN CALCIUM 40 MG TABLET PO SCH (09:19)
[2020-10-24] MEDS: MONTELUKAST SODIUM 10 MG TABLET PO SCH (09:19)
[2020-10-24] MEDS: DOCUSATE SODIUM 100 MG CAPSULE PO SCH ×2 (09:19→22:08)
[2020-10-24] MEDS: METOPROLOL SUCCINATE 50 MG ER TABLET PO SCH (09:19)
[2020-10-24] MEDS: AmLODIPine BESYLATE 5 MG TABLET PO SCH (09:19)
[2020-10-24] MEDS: DEXAMETHASONE SOD PHOS 4 MG/ML VIAL IVP SCH (09:20)
[2020-10-24] MEDS: INSULIN GLARGINE,HUM.REC.ANLOG 100 UNITS/ML SQ SCH ×2 (09:23→22:19)
[2020-10-24] MEDS: HEPARIN SODIUM 25000 UNITS/D5W 250 ML IV PRN (09:41)
[2020-10-24 12:00] VITALS: BP 128/43
[2020-10-24] MEDS: LORazepam 2 MG/ML VIAL IVP PRN (13:59)
[2020-10-24 16:00] VITALS: BP 141/51
[2020-10-24 17:09] LABS: GLUCOSE,POINT OF CARE 136 MG/DL (70-110)
[2020-10-24] MEDS: CefTRIAXone 1 GM/DEXTROSE 50 ML IV SCH (18:13)
[2020-10-24 18:28] LABS: GLUCOSE,POINT OF CARE 138 MG/DL (70-110)
[2020-10-24 18:29] LABS: GLUCOSE,POINT OF CARE 177 MG/DL (70-110)
[2020-10-24 20:00] VITALS: BP 135/47
[2020-10-24] MEDS: AZITHROMYCIN 500 MG/NS 250 ML IV SCH (22:04)
[2020-10-24] MEDS: DIAZEPAM 5 MG TABLET PO SCH (22:07)
[2020-10-24] MEDS ORDERED: SODIUM CHLORIDE 0.9% 250 ML IV ONE (23:56)
[2020-10-25] VITALS: BP 119/50
[2020-10-25] MEDS: PROPOFOL 1000 MG/ISO-OSM 100 ML IV PRN ×7 (00:13→21:33)
[2020-10-25] MEDS: INSULIN LISPRO 100 UNITS/ML SQ PRN ×4 (00:16→23:38)
[2020-10-25] MEDS: FentaNYL CITRATE PF 500 MCG in DEXTROSE 5%-WATER 90 ML IV PRN ×3 (01:34→19:58)
[2020-10-25 02:41] LABS: GLUCOSE,POINT OF CARE 156 MG/DL (70-110)
[2020-10-25 02:41] LABS: GLUCOSE,POINT OF CARE 167 MG/DL (70-110)
[2020-10-25 04:00] VITALS: BP 113/39
[2020-10-25 05:28] LABS: D-DIMER 2.14 mg/L FEU (0.00-0.50)
[2020-10-25 05:54] LABS: C-REACTIVE PROTEIN QUANT 2.8 mg/dL (0.00-0.30)
[2020-10-25 07:38] LABS: GLUCOSE,POINT OF CARE 83 MG/DL (70-110)
[2020-10-25 08:00] VITALS: BP 122/43
[2020-10-25] MEDS: DEXAMETHASONE SOD PHOS 4 MG/ML VIAL IVP SCH (08:34)
[2020-10-25] MEDS: DOCUSATE SODIUM 100 MG CAPSULE PO SCH ×2 (08:35→20:44)
[2020-10-25] MEDS: DIAZEPAM 5 MG TABLET PO SCH ×2 (08:35→20:44)
[2020-10-25] MEDS: METOPROLOL SUCCINATE 50 MG ER TABLET PO SCH (08:35)
[2020-10-25] MEDS: ASPIRIN 81 MG CHEWABLE TABLET PO SCH (08:35)
[2020-10-25] MEDS: MONTELUKAST SODIUM 10 MG TABLET PO SCH (08:35)
[2020-10-25] MEDS: AmLODIPine BESYLATE 5 MG TABLET PO SCH (08:36)
[2020-10-25] MEDS: INSULIN GLARGINE,HUM.REC.ANLOG 100 UNITS/ML SQ SCH ×2 (08:36→20:52)
[2020-10-25] MEDS: ATORVASTATIN CALCIUM 40 MG TABLET PO SCH (08:36)
[2020-10-25] MEDS: LORazepam 2 MG/ML VIAL IVP PRN (11:47)
[2020-10-25 12:00] VITALS: BP 144/47
[2020-10-25 16:00] VITALS: BP 125/50
[2020-10-25] MEDS ORDERED: HEPARIN SODIUM,PORCINE 5,000 UNITS/ML VIAL IVP PRN ×2 (16:45)
[2020-10-25 17:23] LABS: GLUCOSE,POINT OF CARE 182 MG/DL (70-110)
[2020-10-25] MEDS: CefTRIAXone 1 GM/DEXTROSE 50 ML IV SCH (18:03)
[2020-10-25 20:00] VITALS: BP 155/58
[2020-10-25] MEDS: AZITHROMYCIN 500 MG/NS 250 ML IV SCH (20:43)
[2020-10-26] VITALS: BP 122/52
[2020-10-26 00:09] LABS: GLUCOSE,POINT OF CARE 204 MG/DL (70-110)
[2020-10-26] MEDS: PROPOFOL 1000 MG/ISO-OSM 100 ML IV PRN ×6 (01:37→22:30)
[2020-10-26] MEDS: FentaNYL CITRATE PF 500 MCG in DEXTROSE 5%-WATER 90 ML IV PRN ×4 (02:17→22:26)
[2020-10-26 03:18] LABS: GLUCOSE,POINT OF CARE 216 MG/DL (70-110)
[2020-10-26 03:18] LABS: GLUCOSE,POINT OF CARE 200 MG/DL (70-110)
[2020-10-26 04:00] VITALS: BP 134/56
[2020-10-26] MEDS ORDERED: SODIUM CHLORIDE 0.9% 250 ML IV ONE ×2 (05:23→21:40)
[2020-10-26] MEDS ORDERED: SODIUM CHLORIDE 0.9% 500 ML IV ONE (05:23)
[2020-10-26 06:06] LABS: D-DIMER 2.22 mg/L FEU (0.00-0.50)
[2020-10-26] MEDS: INSULIN LISPRO 100 UNITS/ML SQ PRN ×3 (06:06→18:13)
[2020-10-26 06:59] LABS: C-REACTIVE PROTEIN QUANT 3.34 mg/dL (0.00-0.30)
[2020-10-26 08:00] VITALS: BP 165/60
[2020-10-26] MEDS: ASPIRIN 81 MG CHEWABLE TABLET PO SCH (10:29)
[2020-10-26] MEDS: DEXAMETHASONE SOD PHOS 4 MG/ML VIAL IVP SCH (10:29)
[2020-10-26] MEDS: DOCUSATE SODIUM 100 MG CAPSULE PO SCH ×2 (10:29→21:35)
[2020-10-26] MEDS: AmLODIPine BESYLATE 5 MG TABLET PO SCH (10:30)
[2020-10-26] MEDS: ATORVASTATIN CALCIUM 40 MG TABLET PO SCH (10:30)
[2020-10-26] MEDS: DIAZEPAM 5 MG TABLET PO SCH ×2 (10:30→21:35)
[2020-10-26] MEDS: INSULIN GLARGINE,HUM.REC.ANLOG 100 UNITS/ML SQ SCH ×2 (10:31→21:33)
[2020-10-26] MEDS: MONTELUKAST SODIUM 10 MG TABLET PO SCH (10:34)
[2020-10-26] MEDS: METOPROLOL SUCCINATE 50 MG ER TABLET PO SCH (10:34)
[2020-10-26 12:00] VITALS: BP 167/61
[2020-10-26 13:38] LABS: GLUCOSE,POINT OF CARE 214 MG/DL (70-110)
[2020-10-26 13:38] LABS: GLUCOSE,POINT OF CARE 211 MG/DL (70-110)
[2020-10-26 13:39] LABS: GLUCOSE,POINT OF CARE 230 MG/DL (70-110)
[2020-10-26 15:56] LABS: ABG A-A DIFF O2 299.6 mmHg (10-20.0); ABG BASE EXCESS 13.2 mmol/L (-2.0-3.0); ABG CARBOXYHEMOGLOBIN 0.7 % (0.0-1.5); ABG HCO3 33.7 mmol/L (22.0-26.0); ABG METHEMOGLOBIN 0.3 % (0.0-1.5); ABG OXYGEN CONTENT 14.8 mL/dL (15.0-23.0); ABG OXYGEN SATURATION 91.6 % (95.0-98.0); ABG OXYHEMOGLOBIN 90.7 % (94.0-100.0); ABG PH 7.265 (7.35-7.450); ABG TOTAL HEMOGLOBIN 11.6 G/dL (12.0-18.0); PO2, ARTERIAL BG 65.4 mmHg (79.0-87.0); SOURCE, BLOOD GAS ARTERIAL; TEMPERATURE, FAHRENHEIT, BG 98.6 FAHREN (96.0-98.6)
[2020-10-26 15:57] LABS: ABG PCO2 91 mmHg (35-45); O2 DEVICE,BLOOD GAS VENTILATOR (ROOM AIR); SITE, BLOOD GAS ARTERIAL LINE
[2020-10-26 15:58] LABS: PEEP,BG 10 cm H2O; VT, ABG 450 ml
[2020-10-26 16:00] VITALS: BP 142/54
[2020-10-26 16:00] LABS: HEMATOCRIT 32.3 % (41-53); HEMOGLOBIN 10.6 g/dL (13.5-17.5); MEAN CORPUSCULAR HEMOGLOBIN 28.8 pg (26.0-34.0); MEAN CORPUSCULAR HGB CONC 32.7 G/dL (31.0-37.0); MEAN CORPUSCULAR VOLUME 88 fL (80-100); PLATELET COUNT (AUTO) 238 K/uL (150-450); RED BLOOD CELL COUNT(AUTO) 3.67 MIL/uL (4.50-5.90); RED CELL DISTRIBUTION WIDTH 14.7 % (11.5-14.5)
[2020-10-26 16:20] LABS: ANION GAP 1 mmol/L (8-16); CALCIUM, TOTAL 8.3 mg/dL (8.8-10.5); CARBON DIOXIDE 39 mmol/L (22-29); CHLORIDE 92 mmol/L (98-107); CREATININE 0.42 mg/dL (0.60-1.30); GLOMERULAR FILTR. RATE CALC > 60 mL/min (>60); GLUCOSE,RANDOM 203 mg/dL (70-110); POTASSIUM 5.2 mmol/L (3.5-5.1); SODIUM SERUM 132 mmol/L (136-145); UREA NITROGEN, BLOOD 20 mg/dL (7-18)
[2020-10-26 17:46] LABS: BAND NEUTROPHILS % (MANUAL) 8 % (0-5); EOSINOPHILS % (MANUAL) 1 % (1-6); LYMPHOCYTES % (MANUAL) 5 % (22-44); MONOCYTES % (MANUAL) 2 % (2-9); SEGMENTED NEUTROPHILS % 84 % (40-70)
[2020-10-26] MEDS: CefTRIAXone 1 GM/DEXTROSE 50 ML IV SCH (18:12)
[2020-10-26 20:00] VITALS: BP 141/51
[2020-10-26 20:13] LABS: ABG A-A DIFF O2 294.5 mmHg (10-20.0); ABG BASE EXCESS 18.9 mmol/L (-2.0-3.0); ABG CARBOXYHEMOGLOBIN 0.8 % (0.0-1.5); ABG HCO3 38.9 mmol/L (22.0-26.0); ABG METHEMOGLOBIN 0.3 % (0.0-1.5); ABG OXYGEN CONTENT 14.8 mL/dL (15.0-23.0); ABG OXYGEN SATURATION 93.7 % (95.0-98.0); ABG OXYHEMOGLOBIN 92.7 % (94.0-100.0); ABG PCO2 94 mmHg (35-45); ABG PH 7.297 (7.35-7.450); ABG TOTAL HEMOGLOBIN 11.3 G/dL (12.0-18.0); O2 DEVICE,BLOOD GAS VENTILATOR (ROOM AIR); SITE, BLOOD GAS ARTERIAL LINE; SOURCE, BLOOD GAS ARTERIAL; TEMPERATURE, FAHRENHEIT, BG 96.8 FAHREN (96.0-98.6)
[2020-10-26 20:14] LABS: PEEP,BG 10 cm H2O; VT, ABG 450 ml
[2020-10-26] MEDS ORDERED: FUROSEMIDE 20 MG/2 ML VIAL IVP ONE (20:30)
[2020-10-26] MEDS: AZITHROMYCIN 500 MG/NS 250 ML IV SCH (21:35)
[2020-10-26] MEDS: HEPARIN SODIUM 25000 UNITS/D5W 250 ML IV PRN (22:32)
[2020-10-27] VITALS: BP 125/48
[2020-10-27] MEDS: INSULIN LISPRO 100 UNITS/ML SQ PRN ×4 (00:01→17:46)
[2020-10-27] MEDS: FentaNYL CITRATE PF 500 MCG in DEXTROSE 5%-WATER 90 ML IV PRN ×4 (01:06→20:49)
[2020-10-27 04:00] VITALS: BP 119/39
[2020-10-27 06:44] LABS: BASOPHILS % (AUTO) 0.3 % (0.0-2.0); EOSINOPHILS % (AUTO) 2.1 % (1.0-6.0); HEMATOCRIT 27.4 % (41-53); HEMOGLOBIN 9.2 g/dL (13.5-17.5); LYMPHOCYTES # (AUTO) 0.8 K/uL (1.0-4.8); LYMPHOCYTES % (AUTO) 5.5 % (22.0-44.0); MEAN CORPUSCULAR HEMOGLOBIN 29.5 pg (26.0-34.0); MEAN CORPUSCULAR HGB CONC 33.6 G/dL (31.0-37.0); MEAN CORPUSCULAR VOLUME 88 fL (80-100); MONOCYTES # (AUTO) 0.4 K/uL (0.1-1.0); NEUTROPHILS # (AUTO) 13.1 K/uL (1.8-7.7); PLATELET COUNT (AUTO) 235 K/uL (150-450); RED BLOOD CELL COUNT(AUTO) 3.12 MIL/uL (4.50-5.90); RED CELL DISTRIBUTION WIDTH 14.6 % (11.5-14.5)
[2020-10-27 06:47] LABS: ANION GAP -2 mmol/L (8-16); CARBON DIOXIDE 40 mmol/L (22-29); CHLORIDE 93 mmol/L (98-107); CREATININE 0.44 mg/dL (0.60-1.30); GLOMERULAR FILTR. RATE CALC > 60 mL/min (>60); GLUCOSE,RANDOM 203 mg/dL (70-110); POTASSIUM 4.4 mmol/L (3.5-5.1); SODIUM SERUM 131 mmol/L (136-145); UREA NITROGEN, BLOOD 16 mg/dL (7-18)
[2020-10-27 07:04] LABS: NEUTROPHILS % (AUTO) 89.1 % (40.0-70.0)
[2020-10-27 08:00] VITALS: BP 135/40
[2020-10-27] MEDS: AmLODIPine BESYLATE 5 MG TABLET PO SCH (09:27)
[2020-10-27] MEDS: MONTELUKAST SODIUM 10 MG TABLET PO SCH (09:28)
[2020-10-27] MEDS: DEXAMETHASONE SOD PHOS 4 MG/ML VIAL IVP SCH (09:28)
[2020-10-27] MEDS: DIAZEPAM 5 MG TABLET PO SCH ×2 (09:28→20:50)
[2020-10-27] MEDS: DOCUSATE SODIUM 100 MG CAPSULE PO SCH ×2 (09:28→20:50)
[2020-10-27] MEDS: METOPROLOL SUCCINATE 50 MG ER TABLET PO SCH (09:28)
[2020-10-27] MEDS: ATORVASTATIN CALCIUM 40 MG TABLET PO SCH (09:29)
[2020-10-27] MEDS: ASPIRIN 81 MG CHEWABLE TABLET PO SCH (09:29)
[2020-10-27] MEDS: INSULIN GLARGINE,HUM.REC.ANLOG 100 UNITS/ML SQ SCH ×2 (09:31→21:58)
[2020-10-27 09:46] LABS: GLUCOSE,POINT OF CARE 190 MG/DL (70-110)
[2020-10-27] MEDS: HEPARIN SODIUM 25000 UNITS/D5W 250 ML IV PRN (10:32)
[2020-10-27 12:00] VITALS: BP 145/45
[2020-10-27 12:25] LABS: GLUCOSE,POINT OF CARE 231 MG/DL (70-110)
[2020-10-27 12:25] LABS: GLUCOSE,POINT OF CARE 220 MG/DL (70-110)
[2020-10-27 12:25] LABS: GLUCOSE,POINT OF CARE 229 MG/DL (70-110)
[2020-10-27 13:06] LABS: GLUCOSE,POINT OF CARE 226 MG/DL (70-110)
[2020-10-27 16:00] VITALS: BP 125/49
[2020-10-27] MEDS: PROPOFOL 1000 MG/ISO-OSM 100 ML IV PRN ×2 (17:13→21:55)
[2020-10-27] MEDS: CefTRIAXone 1 GM/DEXTROSE 50 ML IV SCH (17:13)
[2020-10-27 20:00] VITALS: BP 119/43
[2020-10-27] MEDS: AZITHROMYCIN 500 MG/NS 250 ML IV SCH (20:50)
[2020-10-27 21:51] LABS: GLUCOSE,POINT OF CARE 255 MG/DL (70-110)
[2020-10-27 22:18] LABS: GLUCOSE,POINT OF CARE 245 MG/DL (70-110)
[2020-10-28] VITALS: BP 128/46
[2020-10-28] MEDS: FentaNYL CITRATE PF 500 MCG in DEXTROSE 5%-WATER 90 ML IV PRN ×4 (00:03→17:38)
[2020-10-28] MEDS: INSULIN LISPRO 100 UNITS/ML SQ PRN ×3 (00:19→17:39)
[2020-10-28 00:28] LABS: GLUCOSE,POINT OF CARE 214 MG/DL (70-110)
[2020-10-28] MEDS: PROPOFOL 1000 MG/ISO-OSM 100 ML IV PRN ×5 (02:27→22:40)
[2020-10-28] MEDS ORDERED: FUROSEMIDE 20 MG/2 ML VIAL IVP ONE (02:30)
[2020-10-28 04:00] VITALS: BP 119/50
[2020-10-28 08:00] VITALS: BP 154/55
[2020-10-28] MEDS: AmLODIPine BESYLATE 5 MG TABLET PO SCH (09:27)
[2020-10-28] MEDS: ASPIRIN 81 MG CHEWABLE TABLET PO SCH (09:27)
[2020-10-28] MEDS: METOPROLOL SUCCINATE 50 MG ER TABLET PO SCH (09:27)
[2020-10-28] MEDS: DIAZEPAM 5 MG TABLET PO SCH ×2 (09:27→21:01)
[2020-10-28] MEDS: ATORVASTATIN CALCIUM 40 MG TABLET PO SCH (09:28)
[2020-10-28] MEDS: MONTELUKAST SODIUM 10 MG TABLET PO SCH (09:28)
[2020-10-28] MEDS: DEXAMETHASONE SOD PHOS 4 MG/ML VIAL IVP SCH (09:28)
[2020-10-28] MEDS: DOCUSATE SODIUM 100 MG CAPSULE PO SCH ×2 (09:28→21:01)
[2020-10-28] MEDS: INSULIN GLARGINE,HUM.REC.ANLOG 100 UNITS/ML SQ SCH ×2 (09:32→21:47)
[2020-10-28] MEDS: APIXABAN 5 MG TABLET PO SCH ×2 (11:32→21:01)
[2020-10-28 12:00] VITALS: BP 122/42
[2020-10-28 13:28] LABS: GLUCOSE,POINT OF CARE 236 MG/DL (70-110)
[2020-10-28] MEDS: MIDAZOLAM HCL 100 MG in DEXTROSE 5%-WATER 180 ML IV PRN (14:16)
[2020-10-28 16:00] VITALS: BP 121/45
[2020-10-28 20:00] VITALS: BP 114/45
[2020-10-28 20:12] LABS: GLUCOSE,POINT OF CARE 295 MG/DL (70-110)
[2020-10-28] MEDS: MAGNESIUM HYDROXIDE SUSPENSION 30 ML UDCUP PO PRN (21:01)
[2020-10-28 21:59] LABS: GLUCOSE,POINT OF CARE 238 MG/DL (70-110)
[2020-10-28] MEDS ORDERED: SODIUM CHLORIDE 0.9% 250 ML IV ONE (23:26)
[2020-10-29] VITALS: BP 107/45
[2020-10-29] MEDS: FentaNYL CITRATE PF 500 MCG in DEXTROSE 5%-WATER 90 ML IV PRN ×3 (00:43→21:02)
[2020-10-29 02:56] LABS: GLUCOSE,POINT OF CARE 249 MG/DL (70-110)
[2020-10-29] MEDS: PROPOFOL 1000 MG/ISO-OSM 100 ML IV PRN ×3 (03:06→18:00)
[2020-10-29 04:00] VITALS: BP 113/46
[2020-10-29] MEDS: INSULIN LISPRO 100 UNITS/ML SQ PRN ×3 (06:20→17:26)
[2020-10-29 06:43] LABS: GLUCOSE,POINT OF CARE 183 MG/DL (70-110)
[2020-10-29 08:00] VITALS: BP 143/48
[2020-10-29] MEDS: DIAZEPAM 5 MG TABLET PO SCH ×2 (08:09→21:01)
[2020-10-29] MEDS: ATORVASTATIN CALCIUM 40 MG TABLET PO SCH (08:09)
[2020-10-29] MEDS: DOCUSATE SODIUM 100 MG CAPSULE PO SCH ×2 (08:09→21:01)
[2020-10-29] MEDS: DEXAMETHASONE SOD PHOS 4 MG/ML VIAL IVP SCH (08:09)
[2020-10-29] MEDS: APIXABAN 5 MG TABLET PO SCH ×2 (08:09→21:01)
[2020-10-29] MEDS: ASPIRIN 81 MG CHEWABLE TABLET PO SCH (08:09)
[2020-10-29] MEDS: METOPROLOL SUCCINATE 50 MG ER TABLET PO SCH (08:09)
[2020-10-29] MEDS: MONTELUKAST SODIUM 10 MG TABLET PO SCH (08:10)
[2020-10-29] MEDS: INSULIN GLARGINE,HUM.REC.ANLOG 100 UNITS/ML SQ SCH ×2 (08:39→21:34)
[2020-10-29 09:16] LABS: GLUCOSE,POINT OF CARE 178 MG/DL (70-110)
[2020-10-29] MEDS ORDERED: SODIUM CHLORIDE 0.9% 250 ML IV ONE (10:32)
[2020-10-29 12:00] VITALS: BP 104/46
[2020-10-29 12:37] LABS: GLUCOSE,POINT OF CARE 170 MG/DL (70-110)
[2020-10-29] MEDS: MIDAZOLAM HCL 100 MG in DEXTROSE 5%-WATER 180 ML IV PRN (14:59)
[2020-10-29 16:00] VITALS: BP 109/44
[2020-10-29 18:52] LABS: GLUCOSE,POINT OF CARE 227 MG/DL (70-110)
[2020-10-29 20:00] VITALS: BP 104/54
[2020-10-29 21:41] LABS: APPEARANCE,URINE CLOUDY (CLEAR); BILIRUBIN,URINE NEGATIVE (NEGATIVE); GLUCOSE, URINE (UA) 250 mg/dL (NEGATIVE); KETONES,URINE NEGATIVE (NEGATIVE); LEUKOCYTE ESTERASE ,URINE MODERATE (NEGATIVE); NITRATE,URINE NEGATIVE (NEGATIVE); OCCULT BLOOD,URINE NEGATIVE (NEGATIVE); PROTEIN,URINE NEGATIVE (NEGATIVE)
[2020-10-29 21:54] LABS: RBC,URINE 0-2 /HPF (0-2); YEAST,URINE Many /HPF (None Seen)
[2020-10-29 21:55] LABS: BACTERIA,URINE Rare /HPF (None Seen)
[2020-10-29 21:56] LABS: SQUAMOUS EPITHELIAL CELL,UR None Seen /LPF (None Seen)
[2020-10-29] MEDS ORDERED: SODIUM CHLORIDE 0.9% 500 ML IV ONE (22:51)
[2020-10-30] VITALS: BP 134/50
[2020-10-30] MEDS: PROPOFOL 1000 MG/ISO-OSM 100 ML IV PRN ×4 (03:49→23:24)
[2020-10-30 04:00] VITALS: BP 134/50
[2020-10-30 04:22] LABS: GLUCOSE,POINT OF CARE 163 MG/DL (70-110)
[2020-10-30 06:06] LABS: GLUCOSE,POINT OF CARE 144 MG/DL (70-110)
[2020-10-30 06:32] LABS: BASOPHILS % (AUTO) 0.2 % (0.0-2.0); EOSINOPHILS % (AUTO) 2.8 % (1.0-6.0); HEMATOCRIT 27.9 % (41-53); HEMOGLOBIN 9.4 g/dL (13.5-17.5); LYMPHOCYTES # (AUTO) 1.2 K/uL (1.0-4.8); LYMPHOCYTES % (AUTO) 7.9 % (22.0-44.0); MEAN CORPUSCULAR HEMOGLOBIN 29.5 pg (26.0-34.0); MEAN CORPUSCULAR HGB CONC 33.6 G/dL (31.0-37.0); MEAN CORPUSCULAR VOLUME 88 fL (80-100); MONOCYTES # (AUTO) 0.9 K/uL (0.1-1.0); MONOCYTES % (AUTO) 5.7 % (2.0-9.0); NEUTROPHILS % (AUTO) 83.4 % (40.0-70.0); PLATELET COUNT (AUTO) 369 K/uL (150-450); RED BLOOD CELL COUNT(AUTO) 3.18 MIL/uL (4.50-5.90); RED CELL DISTRIBUTION WIDTH 15.5 % (11.5-14.5)
[2020-10-30 07:01] LABS: ANION GAP -2 mmol/L (8-16); CALCIUM, TOTAL 8.4 mg/dL (8.8-10.5); CHLORIDE 96 mmol/L (98-107); CREATININE 0.51 mg/dL (0.60-1.30); GLOMERULAR FILTR. RATE CALC > 60 mL/min (>60); GLUCOSE,RANDOM 153 mg/dL (70-110); POTASSIUM 4.3 mmol/L (3.5-5.1); SODIUM SERUM 137 mmol/L (136-145); UREA NITROGEN, BLOOD 18 mg/dL (7-18)
[2020-10-30 07:30] LABS: CARBON DIOXIDE 43 mmol/L (22-29)
[2020-10-30 07:57] LABS: ABG A-A DIFF O2 260.9 mmHg (10-20.0); ABG BASE EXCESS 20.1 mmol/L (-2.0-3.0); ABG CARBOXYHEMOGLOBIN 0.8 % (0.0-1.5); ABG HCO3 40.6 mmol/L (22.0-26.0); ABG METHEMOGLOBIN 0.3 % (0.0-1.5); ABG OXYGEN CONTENT 14.9 mL/dL (15.0-23.0); ABG OXYGEN SATURATION 94.4 % (95.0-98.0); ABG OXYHEMOGLOBIN 93.4 % (94.0-100.0); ABG PH 7.373 (7.35-7.450); ABG TOTAL HEMOGLOBIN 11.3 G/dL (12.0-18.0); PO2, ARTERIAL BG 79.3 mmHg (79.0-87.0); SOURCE, BLOOD GAS ARTERIAL; TEMPERATURE, FAHRENHEIT, BG 98.6 FAHREN (96.0-98.6)
[2020-10-30] MEDS: DOCUSATE SODIUM 100 MG CAPSULE PO SCH ×2 (07:58→20:27)
[2020-10-30] MEDS: ATORVASTATIN CALCIUM 40 MG TABLET PO SCH (07:58)
[2020-10-30] MEDS: DEXAMETHASONE SOD PHOS 4 MG/ML VIAL IVP SCH (07:59)
[2020-10-30] MEDS: ASPIRIN 81 MG CHEWABLE TABLET PO SCH (07:59)
[2020-10-30] MEDS: APIXABAN 5 MG TABLET PO SCH ×2 (07:59→20:27)
[2020-10-30] MEDS: DIAZEPAM 5 MG TABLET PO SCH ×2 (07:59→20:27)
[2020-10-30 08:00] VITALS: BP 132/49
[2020-10-30 08:02] LABS: ABG PCO2 80 mmHg (35-45); O2 DEVICE,BLOOD GAS VENTILATOR (ROOM AIR); PEEP,BG 10 cm H2O; SITE, BLOOD GAS ARTERIAL LINE; VT, ABG 470 ml
[2020-10-30] MEDS: MONTELUKAST SODIUM 10 MG TABLET PO SCH (08:02)
[2020-10-30] MEDS: METOPROLOL SUCCINATE 50 MG ER TABLET PO SCH (08:02)
[2020-10-30] MEDS: INSULIN GLARGINE,HUM.REC.ANLOG 100 UNITS/ML SQ SCH ×2 (08:27→20:41)
[2020-10-30] MEDS ORDERED: ACETYLCYSTEINE 10% 100 MG/ML 4 ML NEB SOLUTION NEB PRN (08:40)
[2020-10-30] MEDS: FLUCONAZOLE 100 MG TABLET NG SCH (09:48)
[2020-10-30] MEDS: CefTRIAXone 1 GM/DEXTROSE 50 ML IV SCH (09:49)
[2020-10-30] MEDS: FentaNYL CITRATE PF 500 MCG in DEXTROSE 5%-WATER 90 ML IV PRN ×2 (09:49→22:20)
[2020-10-30] MEDS: MAGNESIUM HYDROXIDE SUSPENSION 30 ML UDCUP PO PRN (11:42)
[2020-10-30] MEDS: INSULIN LISPRO 100 UNITS/ML SQ PRN ×2 (11:54→17:48)
[2020-10-30 12:00] VITALS: BP 112/43
[2020-10-30 12:07] LABS: GLUCOSE,POINT OF CARE 167 MG/DL (70-110)
[2020-10-30 12:09] LABS: GLUCOSE,POINT OF CARE 157 MG/DL (70-110)
[2020-10-30 16:00] VITALS: BP 154/52
[2020-10-30] MEDS: MIDAZOLAM HCL 100 MG in DEXTROSE 5%-WATER 180 ML IV PRN (17:08)
[2020-10-30 17:56] LABS: GLUCOSE,POINT OF CARE 241 MG/DL (70-110)
[2020-10-30 20:00] VITALS: BP 129/54
[2020-10-31] VITALS: BP 123/50
[2020-10-31] MEDS: INSULIN LISPRO 100 UNITS/ML SQ PRN ×4 (00:11→19:08)
[2020-10-31 01:42] LABS: GLUCOSE,POINT OF CARE 208 MG/DL (70-110)
[2020-10-31 01:42] LABS: GLUCOSE,POINT OF CARE 189 MG/DL (70-110)
[2020-10-31 04:00] VITALS: BP 123/50
[2020-10-31 05:31] LABS: BASOPHILS % (AUTO) 0.1 % (0.0-2.0); EOSINOPHILS % (AUTO) 3.1 % (1.0-6.0); HEMATOCRIT 29.9 % (41-53); HEMOGLOBIN 9.7 g/dL (13.5-17.5); LYMPHOCYTES # (AUTO) 1.1 K/uL (1.0-4.8); LYMPHOCYTES % (AUTO) 7.7 % (22.0-44.0); MEAN CORPUSCULAR HEMOGLOBIN 28.8 pg (26.0-34.0); MEAN CORPUSCULAR HGB CONC 32.6 G/dL (31.0-37.0); MEAN CORPUSCULAR VOLUME 89 fL (80-100); MONOCYTES # (AUTO) 0.8 K/uL (0.1-1.0); MONOCYTES % (AUTO) 5.7 % (2.0-9.0); NEUTROPHILS # (AUTO) 11.7 K/uL (1.8-7.7); NEUTROPHILS % (AUTO) 83.4 % (40.0-70.0); PLATELET COUNT (AUTO) 396 K/uL (150-450); RED BLOOD CELL COUNT(AUTO) 3.37 MIL/uL (4.50-5.90); RED CELL DISTRIBUTION WIDTH 15.2 % (11.5-14.5)
[2020-10-31 06:21] LABS: CALCIUM, TOTAL 8.8 mg/dL (8.8-10.5); CHLORIDE 94 mmol/L (98-107); CREATININE 0.34 mg/dL (0.60-1.30); GLOMERULAR FILTR. RATE CALC > 60 mL/min (>60); GLUCOSE,RANDOM 136 mg/dL (70-110); POTASSIUM 4.7 mmol/L (3.5-5.1); SODIUM SERUM 135 mmol/L (136-145); UREA NITROGEN, BLOOD 21 mg/dL (7-18)
[2020-10-31 06:22] LABS: ANION GAP 2 mmol/L (8-16); CARBON DIOXIDE 39 mmol/L (22-29)
[2020-10-31 08:00] VITALS: BP 122/50
[2020-10-31] MEDS: FentaNYL CITRATE PF 500 MCG in DEXTROSE 5%-WATER 90 ML IV PRN ×5 (08:32→22:12)
[2020-10-31] MEDS: METOPROLOL SUCCINATE 50 MG ER TABLET PO SCH (09:00)
[2020-10-31] MEDS: CefTRIAXone 1 GM/DEXTROSE 50 ML IV SCH (09:27)
[2020-10-31] MEDS: DEXAMETHASONE SOD PHOS 4 MG/ML VIAL IVP SCH (09:27)
[2020-10-31] MEDS: MONTELUKAST SODIUM 10 MG TABLET PO SCH (09:28)
[2020-10-31] MEDS: DIAZEPAM 5 MG TABLET PO SCH ×2 (09:28→23:59)
[2020-10-31] MEDS: APIXABAN 5 MG TABLET PO SCH ×2 (09:29→23:59)
[2020-10-31] MEDS: DOCUSATE SODIUM 100 MG CAPSULE PO SCH ×2 (09:29→23:59)
[2020-10-31] MEDS: ATORVASTATIN CALCIUM 40 MG TABLET PO SCH (09:29)
[2020-10-31] MEDS: ASPIRIN 81 MG CHEWABLE TABLET PO SCH (09:30)
[2020-10-31] MEDS: FLUCONAZOLE 100 MG TABLET NG SCH (09:30)
[2020-10-31] MEDS: MULTIVITAMINS, THERAPEUTIC 15 ML UDCUP NG SCH (09:31)
[2020-10-31] MEDS: INSULIN GLARGINE,HUM.REC.ANLOG 100 UNITS/ML SQ SCH (09:35)
[2020-10-31 12:00] VITALS: BP 104/44
[2020-10-31] MEDS: PROPOFOL 1000 MG/ISO-OSM 100 ML IV PRN ×2 (12:11→22:11)
[2020-10-31 12:39] LABS: GLUCOSE,POINT OF CARE 139 MG/DL (70-110)
[2020-10-31] MEDS: MIDAZOLAM HCL 100 MG in DEXTROSE 5%-WATER 180 ML IV PRN (14:44)
[2020-10-31 16:00] VITALS: BP 105/46
[2020-10-31 20:00] VITALS: BP 110/44
[2020-10-31 20:30] LABS: GLUCOSE,POINT OF CARE 174 MG/DL (70-110)
[2020-10-31 20:30] LABS: GLUCOSE,POINT OF CARE 219 MG/DL (70-110)
[2020-11-01] VITALS: BP 114/45
[2020-11-01] MEDS: INSULIN GLARGINE,HUM.REC.ANLOG 100 UNITS/ML SQ SCH ×3 (00:29→21:17)
[2020-11-01] MEDS: INSULIN LISPRO 100 UNITS/ML SQ PRN ×4 (00:30→17:17)
[2020-11-01] MEDS: PROPOFOL 1000 MG/ISO-OSM 100 ML IV PRN ×4 (01:44→17:25)
[2020-11-01] MEDS: FentaNYL CITRATE PF 500 MCG in DEXTROSE 5%-WATER 90 ML IV PRN ×7 (01:45→21:44)
[2020-11-01 04:00] VITALS: BP 110/44
[2020-11-01 05:45] LABS: GLUCOSE,POINT OF CARE 214 MG/DL (70-110)
[2020-11-01 08:00] VITALS: BP 117/49
[2020-11-01 08:53] LABS: GLUCOSE,POINT OF CARE 170 MG/DL (70-110)
[2020-11-01] MEDS: METOPROLOL SUCCINATE 50 MG ER TABLET PO SCH (09:00)
[2020-11-01] MEDS: CefTRIAXone 1 GM/DEXTROSE 50 ML IV SCH (09:28)
[2020-11-01] MEDS: MONTELUKAST SODIUM 10 MG TABLET PO SCH (09:28)
[2020-11-01] MEDS: ASPIRIN 81 MG CHEWABLE TABLET PO SCH (09:29)
[2020-11-01] MEDS: ATORVASTATIN CALCIUM 40 MG TABLET PO SCH (09:29)
[2020-11-01] MEDS: APIXABAN 5 MG TABLET PO SCH ×2 (09:30→20:50)
[2020-11-01] MEDS: DIAZEPAM 5 MG TABLET PO SCH ×2 (09:30→20:50)
[2020-11-01] MEDS: DEXAMETHASONE SOD PHOS 4 MG/ML VIAL IVP SCH (09:30)
[2020-11-01] MEDS: DOCUSATE SODIUM 100 MG CAPSULE PO SCH ×2 (09:31→20:50)
[2020-11-01] MEDS: FLUCONAZOLE 100 MG TABLET NG SCH (09:53)
[2020-11-01] MEDS: MAGNESIUM HYDROXIDE SUSPENSION 30 ML UDCUP PO PRN (10:35)
[2020-11-01] MEDS ORDERED: SODIUM CHLORIDE 0.9% 250 ML IV ONE (11:21)
[2020-11-01] MEDS: MULTIVITAMINS, THERAPEUTIC 15 ML UDCUP NG SCH (11:32)
[2020-11-01 12:00] VITALS: BP 139/51
[2020-11-01] MEDS ORDERED: FUROSEMIDE 40 MG/4 ML VIAL IVP ONE (13:30)
[2020-11-01 16:00] VITALS: BP 105/43
[2020-11-01 16:47] LABS: GLUCOSE,POINT OF CARE 175 MG/DL (70-110)
[2020-11-01 17:35] LABS: GLUCOSE,POINT OF CARE 263 MG/DL (70-110)
[2020-11-01] MEDS: MIDAZOLAM HCL 100 MG in DEXTROSE 5%-WATER 180 ML IV PRN (19:15)
[2020-11-01 20:00] VITALS: BP 154/54
[2020-11-01] MEDS: DEXMEDETOMIDINE HCL 400 MCG in SODIUM CHLORIDE 0.9% 96 ML IV PRN (20:03)
[2020-11-01 21:22] LABS: GLUCOSE,POINT OF CARE 218 MG/DL (70-110)
[2020-11-01] MEDS: HydrALAZINE HCL 20 MG/ML VIAL IVP PRN (22:57)
[2020-11-02] VITALS: BP 115/42
[2020-11-02 00:09] LABS: GLUCOSE,POINT OF CARE 170 MG/DL (70-110)
[2020-11-02] MEDS: FentaNYL CITRATE PF 500 MCG in DEXTROSE 5%-WATER 90 ML IV PRN ×5 (01:32→20:40)
[2020-11-02 04:00] VITALS: BP 118/43
[2020-11-02 05:11] LABS: GLUCOSE,POINT OF CARE 167 MG/DL (70-110)
[2020-11-02] MEDS: INSULIN LISPRO 100 UNITS/ML SQ PRN ×4 (05:28→23:54)
[2020-11-02 05:30] LABS: BASOPHILS % (AUTO) 0.1 % (0.0-2.0); EOSINOPHILS % (AUTO) 1.9 % (1.0-6.0); HEMATOCRIT 26.1 % (41-53); HEMOGLOBIN 8.7 g/dL (13.5-17.5); LYMPHOCYTES # (AUTO) 1.1 K/uL (1.0-4.8); LYMPHOCYTES % (AUTO) 7.8 % (22.0-44.0); MEAN CORPUSCULAR HEMOGLOBIN 29.5 pg (26.0-34.0); MEAN CORPUSCULAR HGB CONC 33.4 G/dL (31.0-37.0); MEAN CORPUSCULAR VOLUME 88 fL (80-100); MONOCYTES # (AUTO) 1.1 K/uL (0.1-1.0); MONOCYTES % (AUTO) 8.1 % (2.0-9.0); NEUTROPHILS # (AUTO) 11.1 K/uL (1.8-7.7); NEUTROPHILS % (AUTO) 82.1 % (40.0-70.0); PLATELET COUNT (AUTO) 360 K/uL (150-450); RED BLOOD CELL COUNT(AUTO) 2.96 MIL/uL (4.50-5.90); RED CELL DISTRIBUTION WIDTH 15.4 % (11.5-14.5)
[2020-11-02] MEDS: PROPOFOL 1000 MG/ISO-OSM 100 ML IV PRN ×3 (06:50→20:40)
[2020-11-02 08:00] VITALS: BP 128/46
[2020-11-02 08:26] LABS: ANION GAP -2 mmol/L (8-16); CALCIUM, TOTAL 8.8 mg/dL (8.8-10.5); CHLORIDE 94 mmol/L (98-107); CREATININE 0.44 mg/dL (0.60-1.30); GLOMERULAR FILTR. RATE CALC > 60 mL/min (>60); GLUCOSE,RANDOM 177 mg/dL (70-110); POTASSIUM 4.3 mmol/L (3.5-5.1); SODIUM SERUM 136 mmol/L (136-145); UREA NITROGEN, BLOOD 24 mg/dL (7-18)
[2020-11-02 08:30] LABS: CARBON DIOXIDE 44 mmol/L (22-29)
[2020-11-02] MEDS: CefTRIAXone 1 GM/DEXTROSE 50 ML IV SCH (09:35)
[2020-11-02] MEDS: ASPIRIN 81 MG CHEWABLE TABLET PO SCH (09:36)
[2020-11-02] MEDS: DEXAMETHASONE SOD PHOS 4 MG/ML VIAL IVP SCH (09:36)
[2020-11-02] MEDS: MULTIVITAMINS, THERAPEUTIC 15 ML UDCUP NG SCH (09:36)
[2020-11-02] MEDS: FLUCONAZOLE 100 MG TABLET NG SCH (09:36)
[2020-11-02] MEDS: METOPROLOL SUCCINATE 50 MG ER TABLET PO SCH (09:37)
[2020-11-02] MEDS: DOCUSATE SODIUM 100 MG CAPSULE PO SCH ×2 (09:37→20:36)
[2020-11-02] MEDS: ATORVASTATIN CALCIUM 40 MG TABLET PO SCH (09:37)
[2020-11-02] MEDS: DIAZEPAM 5 MG TABLET PO SCH ×2 (09:37→20:36)
[2020-11-02] MEDS: MONTELUKAST SODIUM 10 MG TABLET PO SCH (09:37)
[2020-11-02] MEDS: APIXABAN 5 MG TABLET PO SCH ×2 (09:37→20:38)
[2020-11-02 12:00] VITALS: BP 118/43
[2020-11-02] MEDS: INSULIN GLARGINE,HUM.REC.ANLOG 100 UNITS/ML SQ SCH ×2 (12:35→20:59)
[2020-11-02 12:43] LABS: GLUCOSE,POINT OF CARE 154 MG/DL (70-110)
[2020-11-02 16:00] VITALS: BP 117/47
[2020-11-02 20:00] VITALS: BP 112/45
[2020-11-02] MEDS: HydrALAZINE HCL 20 MG/ML VIAL IVP PRN (22:56)
[2020-11-03] VITALS: BP 114/45
[2020-11-03 00:05] LABS: GLUCOSE,POINT OF CARE 241 MG/DL (70-110)
[2020-11-03] MEDS: FentaNYL CITRATE PF 500 MCG in DEXTROSE 5%-WATER 90 ML IV PRN ×5 (00:30→23:29)
[2020-11-03 04:00] VITALS: BP 128/48
[2020-11-03] MEDS: PROPOFOL 1000 MG/ISO-OSM 100 ML IV PRN ×4 (04:22→20:05)
[2020-11-03] MEDS: INSULIN LISPRO 100 UNITS/ML SQ PRN ×3 (05:48→19:08)
[2020-11-03 07:08] LABS: GLUCOSE,POINT OF CARE 171 MG/DL (70-110)
[2020-11-03 07:08] LABS: GLUCOSE,POINT OF CARE 234 MG/DL (70-110)
[2020-11-03 07:08] LABS: GLUCOSE,POINT OF CARE 202 MG/DL (70-110)
[2020-11-03 08:00] VITALS: BP 132/48
[2020-11-03] MEDS: CefTRIAXone 1 GM/DEXTROSE 50 ML IV SCH (09:09)
[2020-11-03] MEDS: MONTELUKAST SODIUM 10 MG TABLET PO SCH (09:10)
[2020-11-03] MEDS: METOPROLOL SUCCINATE 50 MG ER TABLET PO SCH ×2 (09:10→20:04)
[2020-11-03] MEDS: FLUCONAZOLE 100 MG TABLET NG SCH (09:10)
[2020-11-03] MEDS: ASPIRIN 81 MG CHEWABLE TABLET PO SCH (09:10)
[2020-11-03] MEDS: DIAZEPAM 5 MG TABLET PO SCH ×2 (09:10→20:04)
[2020-11-03] MEDS: DOCUSATE SODIUM 100 MG CAPSULE PO SCH ×2 (09:10→20:04)
[2020-11-03] MEDS: ATORVASTATIN CALCIUM 40 MG TABLET PO SCH (09:10)
[2020-11-03] MEDS: APIXABAN 5 MG TABLET PO SCH ×2 (09:10→20:04)
[2020-11-03] MEDS: DEXAMETHASONE SOD PHOS 4 MG/ML VIAL IVP SCH (09:11)
[2020-11-03] MEDS: MULTIVITAMINS, THERAPEUTIC 15 ML UDCUP NG SCH (09:11)
[2020-11-03] MEDS: INSULIN GLARGINE,HUM.REC.ANLOG 100 UNITS/ML SQ SCH ×2 (09:50→20:40)
[2020-11-03 12:00] VITALS: BP 174/58
[2020-11-03] MEDS ORDERED: LIDOCAINE/PF 1% 5 ML VIAL ONE (12:43)
[2020-11-03] MEDS ORDERED: SODIUM CHLORIDE 0.9% 500 ML IV ONE (13:38)
[2020-11-03] MEDS: HydrALAZINE HCL 20 MG/ML VIAL IVP PRN (15:26)
[2020-11-03 16:00] VITALS: BP 156/48
[2020-11-03 19:02] LABS: GLUCOSE,POINT OF CARE 128 MG/DL (70-110)
[2020-11-03 19:02] LABS: GLUCOSE,POINT OF CARE 149 MG/DL (70-110)
[2020-11-03 20:00] VITALS: BP 166/52
[2020-11-03 20:20] LABS: GLUCOSE,POINT OF CARE 216 MG/DL (70-110)
[2020-11-03 23:29] LABS: GLUCOSE,POINT OF CARE 225 MG/DL (70-110)
[2020-11-04] VITALS: BP 132/48
[2020-11-04] MEDS: INSULIN LISPRO 100 UNITS/ML SQ PRN ×3 (00:36→18:41)
[2020-11-04 00:52] LABS: GLUCOSE,POINT OF CARE 193 MG/DL (70-110)
[2020-11-04] MEDS: PROPOFOL 1000 MG/ISO-OSM 100 ML IV PRN ×5 (01:00→23:06)
[2020-11-04] MEDS: HydrALAZINE HCL 20 MG/ML VIAL IVP PRN (01:56)
[2020-11-04] MEDS ORDERED: LABETALOL HCL 5 MG/ML 20 ML VIAL IVP PRN (02:30)
[2020-11-04 04:00] VITALS: BP 154/53
[2020-11-04] MEDS: FentaNYL CITRATE PF 500 MCG in DEXTROSE 5%-WATER 90 ML IV PRN ×7 (04:34→20:09)
[2020-11-04 06:03] LABS: GLUCOSE,POINT OF CARE 210 MG/DL (70-110)
[2020-11-04 08:00] VITALS: BP 126/53
[2020-11-04] MEDS: METOPROLOL SUCCINATE 50 MG ER TABLET PO SCH ×2 (09:00→20:09)
[2020-11-04] MEDS: CefTRIAXone 1 GM/DEXTROSE 50 ML IV SCH (09:17)
[2020-11-04] MEDS: ATORVASTATIN CALCIUM 40 MG TABLET PO SCH (09:54)
[2020-11-04] MEDS: DEXAMETHASONE SOD PHOS 4 MG/ML VIAL IVP SCH (09:54)
[2020-11-04] MEDS: DIAZEPAM 5 MG TABLET PO SCH ×2 (09:54→20:09)
[2020-11-04] MEDS: DOCUSATE SODIUM 100 MG CAPSULE PO SCH ×2 (09:55→20:08)
[2020-11-04] MEDS: APIXABAN 5 MG TABLET PO SCH ×2 (09:55→20:09)
[2020-11-04] MEDS: MONTELUKAST SODIUM 10 MG TABLET PO SCH (09:55)
[2020-11-04] MEDS: ASPIRIN 81 MG CHEWABLE TABLET PO SCH (09:55)
[2020-11-04] MEDS: MULTIVITAMINS, THERAPEUTIC 15 ML UDCUP NG SCH (09:55)
[2020-11-04] MEDS: FLUCONAZOLE 100 MG TABLET NG SCH (09:55)
[2020-11-04] MEDS: INSULIN GLARGINE,HUM.REC.ANLOG 100 UNITS/ML SQ SCH ×2 (10:16→22:02)
[2020-11-04 11:17] LABS: BASOPHILS % (AUTO) 0.5 % (0.0-2.0); EOSINOPHILS % (AUTO) 2.3 % (1.0-6.0); HEMATOCRIT 24.4 % (41-53); HEMOGLOBIN 8.1 g/dL (13.5-17.5); LYMPHOCYTES # (AUTO) 0.8 K/uL (1.0-4.8); LYMPHOCYTES % (AUTO) 5.2 % (22.0-44.0); MEAN CORPUSCULAR HEMOGLOBIN 29.2 pg (26.0-34.0); MEAN CORPUSCULAR VOLUME 88 fL (80-100); MONOCYTES # (AUTO) 1.1 K/uL (0.1-1.0); MONOCYTES % (AUTO) 6.8 % (2.0-9.0); NEUTROPHILS # (AUTO) 13.7 K/uL (1.8-7.7); PLATELET COUNT (AUTO) 319 K/uL (150-450); RED BLOOD CELL COUNT(AUTO) 2.77 MIL/uL (4.50-5.90)
[2020-11-04 11:18] LABS: NEUTROPHILS % (AUTO) 85.2 % (40.0-70.0)
[2020-11-04 11:42] LABS: ANION GAP -5 mmol/L (8-16); CALCIUM, TOTAL 8.2 mg/dL (8.8-10.5); CHLORIDE 92 mmol/L (98-107); CREATININE 0.41 mg/dL (0.60-1.30); GLOMERULAR FILTR. RATE CALC > 60 mL/min (>60); GLUCOSE,RANDOM 267 mg/dL (70-110); POTASSIUM 3.8 mmol/L (3.5-5.1); SODIUM SERUM 130 mmol/L (136-145); UREA NITROGEN, BLOOD 41 mg/dL (7-18)
[2020-11-04 11:50] LABS: CARBON DIOXIDE 43 mmol/L (22-29)
[2020-11-04 12:00] VITALS: BP 127/50
[2020-11-04 16:00] VITALS: BP 128/54
[2020-11-04 17:20] LABS: GLUCOSE,POINT OF CARE 273 MG/DL (70-110)
[2020-11-04 19:59] LABS: GLUCOSE,POINT OF CARE 272 MG/DL (70-110)
[2020-11-04 20:00] VITALS: BP 146/49
[2020-11-05] VITALS: BP_SYST 128; BP_SYST 133; BP_DIAS 45; BP_DIAS 49
[2020-11-05 00:07] LABS: GLUCOSE,POINT OF CARE 286 MG/DL (70-110)
[2020-11-05] MEDS: DEXMEDETOMIDINE HCL 400 MCG in SODIUM CHLORIDE 0.9% 96 ML IV PRN ×2 (00:22→13:55)
[2020-11-05 00:23] LABS: GLUCOSE,POINT OF CARE 257 MG/DL (70-110)
[2020-11-05] MEDS: FentaNYL CITRATE PF 500 MCG in DEXTROSE 5%-WATER 90 ML IV PRN ×4 (00:40→13:00)
[2020-11-05] MEDS: INSULIN LISPRO 100 UNITS/ML SQ PRN ×5 (01:21→23:34)
[2020-11-05 04:00] VITALS: BP 128/49
[2020-11-05] MEDS: PROPOFOL 1000 MG/ISO-OSM 100 ML IV PRN ×2 (04:37→20:50)
[2020-11-05 06:18] LABS: BASOPHILS % (AUTO) 0.4 % (0.0-2.0); EOSINOPHILS % (AUTO) 1.8 % (1.0-6.0); HEMATOCRIT 23.2 % (41-53); HEMOGLOBIN 7.8 g/dL (13.5-17.5); LYMPHOCYTES # (AUTO) 0.9 K/uL (1.0-4.8); LYMPHOCYTES % (AUTO) 5.1 % (22.0-44.0); MEAN CORPUSCULAR HEMOGLOBIN 29.7 pg (26.0-34.0); MEAN CORPUSCULAR HGB CONC 33.7 G/dL (31.0-37.0); MEAN CORPUSCULAR VOLUME 88 fL (80-100); MONOCYTES % (AUTO) 5.4 % (2.0-9.0); NEUTROPHILS # (AUTO) 15.9 K/uL (1.8-7.7); PLATELET COUNT (AUTO) 307 K/uL (150-450); RED BLOOD CELL COUNT(AUTO) 2.63 MIL/uL (4.50-5.90); RED CELL DISTRIBUTION WIDTH 16.1 % (11.5-14.5)
[2020-11-05 06:43] LABS: NEUTROPHILS % (AUTO) 87.3 % (40.0-70.0)
[2020-11-05 07:13] LABS: ANION GAP -2 mmol/L (8-16); CALCIUM, TOTAL 8.4 mg/dL (8.8-10.5); CHLORIDE 94 mmol/L (98-107); CREATININE 0.39 mg/dL (0.60-1.30); GLOMERULAR FILTR. RATE CALC > 60 mL/min (>60); GLUCOSE,RANDOM 201 mg/dL (70-110); POTASSIUM 4.1 mmol/L (3.5-5.1); SODIUM SERUM 135 mmol/L (136-145); UREA NITROGEN, BLOOD 30 mg/dL (7-18)
[2020-11-05 07:16] LABS: CARBON DIOXIDE 43 mmol/L (22-29)
[2020-11-05 08:00] VITALS: BP 124/51
[2020-11-05] MEDS: APIXABAN 5 MG TABLET PO SCH ×2 (09:00→20:52)
[2020-11-05] MEDS: METOPROLOL SUCCINATE 50 MG ER TABLET PO SCH ×2 (09:00→20:51)
[2020-11-05] MEDS: DEXAMETHASONE SOD PHOS 4 MG/ML VIAL IVP SCH (09:05)
[2020-11-05] MEDS: DOCUSATE SODIUM 100 MG CAPSULE PO SCH ×2 (09:06→20:51)
[2020-11-05] MEDS: FLUCONAZOLE 100 MG TABLET NG SCH (09:06)
[2020-11-05] MEDS: ASPIRIN 81 MG CHEWABLE TABLET PO SCH (09:06)
[2020-11-05] MEDS: ATORVASTATIN CALCIUM 40 MG TABLET PO SCH (09:06)
[2020-11-05] MEDS: DIAZEPAM 5 MG TABLET PO SCH ×2 (09:07→20:50)
[2020-11-05] MEDS: MONTELUKAST SODIUM 10 MG TABLET PO SCH (09:07)
[2020-11-05] MEDS: CefTRIAXone 1 GM/DEXTROSE 50 ML IV SCH (09:08)
[2020-11-05] MEDS: MULTIVITAMINS, THERAPEUTIC 15 ML UDCUP NG SCH (10:44)
[2020-11-05] MEDS: INSULIN GLARGINE,HUM.REC.ANLOG 100 UNITS/ML SQ SCH ×2 (11:03→21:24)
[2020-11-05 12:00] VITALS: BP 154/55
[2020-11-05 14:26] LABS: GLUCOSE,POINT OF CARE 190 MG/DL (70-110)
[2020-11-05 14:27] LABS: GLUCOSE,POINT OF CARE 185 MG/DL (70-110)
[2020-11-05 16:00] VITALS: BP 163/58
[2020-11-05 20:00] VITALS: BP 105/47
[2020-11-05 20:14] LABS: GLUCOSE,POINT OF CARE 188 MG/DL (70-110)
[2020-11-05] MEDS: WATER IV PRN (20:50)
[2020-11-05] MEDS: FENTANYL CITRATE IV PRN (20:50)
[2020-11-06] VITALS: BP 115/45
[2020-11-06] MEDS ORDERED: SODIUM CHLORIDE 0.9% 250 ML IV ONE (01:37)
[2020-11-06] MEDS: PROPOFOL 1000 MG/ISO-OSM 100 ML IV PRN ×4 (01:44→18:56)
[2020-11-06 01:54] LABS: GLUCOSE,POINT OF CARE 190 MG/DL (70-110)
[2020-11-06 01:54] LABS: GLUCOSE,POINT OF CARE 172 MG/DL (70-110)
[2020-11-06 04:00] VITALS: BP 105/47
[2020-11-06 05:56] LABS: BASOPHILS % (AUTO) 0.2 % (0.0-2.0); EOSINOPHILS % (AUTO) 2.1 % (1.0-6.0); HEMATOCRIT 24.2 % (41-53); LYMPHOCYTES # (AUTO) 1.2 K/uL (1.0-4.8); LYMPHOCYTES % (AUTO) 5.8 % (22.0-44.0); MEAN CORPUSCULAR HEMOGLOBIN 29.5 pg (26.0-34.0); MEAN CORPUSCULAR HGB CONC 33.1 G/dL (31.0-37.0); MEAN CORPUSCULAR VOLUME 89 fL (80-100); MONOCYTES # (AUTO) 0.9 K/uL (0.1-1.0); MONOCYTES % (AUTO) 4.2 % (2.0-9.0); NEUTROPHILS # (AUTO) 18.5 K/uL (1.8-7.7); PLATELET COUNT (AUTO) 319 K/uL (150-450); RED BLOOD CELL COUNT(AUTO) 2.72 MIL/uL (4.50-5.90); RED CELL DISTRIBUTION WIDTH 16.4 % (11.5-14.5)
[2020-11-06 06:04] LABS: NEUTROPHILS % (AUTO) 87.7 % (40.0-70.0)
[2020-11-06] MEDS: INSULIN LISPRO 100 UNITS/ML SQ PRN ×3 (06:09→17:21)
[2020-11-06] MEDS: WATER IV PRN ×2 (06:28→15:54)
[2020-11-06] MEDS: FENTANYL CITRATE IV PRN ×2 (06:28→15:54)
[2020-11-06 07:11] LABS: GLUCOSE,POINT OF CARE 125 MG/DL (70-110)
[2020-11-06 08:00] VITALS: BP 111/50
[2020-11-06] MEDS: MULTIVITAMINS, THERAPEUTIC 15 ML UDCUP NG SCH (09:00)
[2020-11-06] MEDS: CefTRIAXone 1 GM/DEXTROSE 50 ML IV SCH (09:27)
[2020-11-06] MEDS: DEXAMETHASONE SOD PHOS 4 MG/ML VIAL IVP SCH (09:27)
[2020-11-06] MEDS: APIXABAN 5 MG TABLET PO SCH ×2 (09:28→20:19)
[2020-11-06] MEDS: FLUCONAZOLE 100 MG TABLET NG SCH (09:28)
[2020-11-06] MEDS: MONTELUKAST SODIUM 10 MG TABLET PO SCH (09:28)
[2020-11-06] MEDS: ATORVASTATIN CALCIUM 40 MG TABLET PO SCH (09:28)
[2020-11-06] MEDS: METOPROLOL SUCCINATE 50 MG ER TABLET PO SCH ×2 (09:28→20:19)
[2020-11-06] MEDS: ASPIRIN 81 MG CHEWABLE TABLET PO SCH (09:28)
[2020-11-06] MEDS: DIAZEPAM 5 MG TABLET PO SCH ×2 (09:28→20:19)
[2020-11-06] MEDS: DOCUSATE SODIUM 100 MG CAPSULE PO SCH ×2 (09:28→21:00)
[2020-11-06] MEDS: INSULIN GLARGINE,HUM.REC.ANLOG 100 UNITS/ML SQ SCH ×2 (10:31→20:27)
[2020-11-06 12:00] VITALS: BP 168/50
[2020-11-06 16:00] VITALS: BP 114/51
[2020-11-06 17:45] LABS: GLUCOSE,POINT OF CARE 211 MG/DL (70-110)
[2020-11-06 20:00] VITALS: BP 121/48
[2020-11-07] VITALS: BP 90/43
[2020-11-07] MEDS: INSULIN LISPRO 100 UNITS/ML SQ PRN ×5 (00:35→23:52)
[2020-11-07] MEDS: PROPOFOL 1000 MG/ISO-OSM 100 ML IV PRN ×4 (02:00→23:08)
[2020-11-07] MEDS: FENTANYL CITRATE IV PRN ×3 (03:01→20:46)
[2020-11-07] MEDS: WATER IV PRN ×3 (03:01→20:46)
[2020-11-07 04:00] VITALS: BP 123/50
[2020-11-07 05:11] LABS: GLUCOSE,POINT OF CARE 142 MG/DL (70-110)
[2020-11-07 05:11] LABS: GLUCOSE,POINT OF CARE 187 MG/DL (70-110)
[2020-11-07 05:11] LABS: GLUCOSE,POINT OF CARE 147 MG/DL (70-110)
[2020-11-07 05:12] LABS: GLUCOSE,POINT OF CARE 164 MG/DL (70-110)
[2020-11-07 08:00] VITALS: BP 110/51
[2020-11-07] MEDS: INSULIN GLARGINE,HUM.REC.ANLOG 100 UNITS/ML SQ SCH ×2 (08:20→20:56)
[2020-11-07 08:35] LABS: GLUCOSE,POINT OF CARE 141 MG/DL (70-110)
[2020-11-07 08:35] LABS: GLUCOSE,POINT OF CARE 123 MG/DL (70-110)
[2020-11-07] MEDS: METOPROLOL SUCCINATE 50 MG ER TABLET PO SCH ×2 (09:00→21:00)
[2020-11-07] MEDS: ASPIRIN 81 MG CHEWABLE TABLET PO SCH (09:22)
[2020-11-07] MEDS: DEXAMETHASONE SOD PHOS 4 MG/ML VIAL IVP SCH (09:22)
[2020-11-07] MEDS: ATORVASTATIN CALCIUM 40 MG TABLET PO SCH (09:23)
[2020-11-07] MEDS: DIAZEPAM 5 MG TABLET PO SCH ×2 (09:23→20:53)
[2020-11-07] MEDS: FLUCONAZOLE 100 MG TABLET NG SCH (09:23)
[2020-11-07] MEDS: APIXABAN 5 MG TABLET PO SCH ×2 (09:23→20:53)
[2020-11-07] MEDS: DOCUSATE SODIUM 100 MG CAPSULE PO SCH ×2 (09:23→21:00)
[2020-11-07] MEDS: MONTELUKAST SODIUM 10 MG TABLET PO SCH (09:23)
[2020-11-07] MEDS: MULTIVITAMINS, THERAPEUTIC 15 ML UDCUP NG SCH (09:24)
[2020-11-07] MEDS: CefTRIAXone 1 GM/DEXTROSE 50 ML IV SCH (09:25)
[2020-11-07] MEDS: DEXMEDETOMIDINE HCL 400 MCG in SODIUM CHLORIDE 0.9% 96 ML IV PRN (10:50)
[2020-11-07 12:00] VITALS: BP 131/47
[2020-11-07 12:38] LABS: GLUCOSE,POINT OF CARE 143 MG/DL (70-110)
[2020-11-07 14:40] LABS: ABG A-A DIFF O2 130.9 mmHg (10-20.0); ABG BASE EXCESS 21.2 mmol/L (-2.0-3.0); ABG CARBOXYHEMOGLOBIN 1.9 % (0.0-1.5); ABG HCO3 42.6 mmol/L (22.0-26.0); ABG METHEMOGLOBIN 0.3 % (0.0-1.5); ABG OXYGEN CONTENT 10.2 mL/dL (15.0-23.0); ABG OXYGEN SATURATION 86.8 % (95.0-98.0); ABG OXYHEMOGLOBIN 84.9 % (94.0-100.0); ABG PCO2 62 mmHg (35-45); ABG PH 7.478 (7.35-7.450); ABG TOTAL HEMOGLOBIN 8.5 G/dL (12.0-18.0); PO2, ARTERIAL BG 47.4 mmHg (79.0-87.0); SOURCE, BLOOD GAS ARTERIAL; TEMPERATURE, FAHRENHEIT, BG 97.9 FAHREN (96.0-98.6)
[2020-11-07 14:41] LABS: CPAP, BG 5 cm H2O; O2 DEVICE,BLOOD GAS VENTILATOR (ROOM AIR); PRESSURE SUPPORT, BG 8 cm H2O; SITE, BLOOD GAS ARTERIAL LINE; SPONTANEOUS VT, BG 586 ml; VENT MODE, BG CPAP (ROOM AIR)
[2020-11-07 16:00] VITALS: BP 151/45
[2020-11-07 18:15] LABS: GLUCOSE,POINT OF CARE 203 MG/DL (70-110)
[2020-11-07] MEDS: ALBUTEROL SULFATE 2.5 MG/0.5 ML NEB SOLUTION NEB PRN (19:35)
[2020-11-07] MEDS: ACETYLCYSTEINE 10% 100 MG/ML 4 ML NEB SOLUTION NEB PRN (19:35)
[2020-11-07 20:00] VITALS: BP 110/46
[2020-11-08] VITALS: BP 113/48
[2020-11-08 02:27] LABS: GLUCOSE,POINT OF CARE 207 MG/DL (70-110)
[2020-11-08 02:27] LABS: GLUCOSE,POINT OF CARE 197 MG/DL (70-110)
[2020-11-08 04:00] VITALS: BP 110/47
[2020-11-08] MEDS: PROPOFOL 1000 MG/ISO-OSM 100 ML IV PRN ×4 (04:23→22:10)
[2020-11-08] MEDS: FENTANYL CITRATE IV PRN ×2 (05:26→18:29)
[2020-11-08] MEDS: WATER IV PRN ×2 (05:26→18:29)
[2020-11-08 07:02] LABS: GLUCOSE,POINT OF CARE 80 MG/DL (70-110)
[2020-11-08 07:02] LABS: GLUCOSE,POINT OF CARE 116 MG/DL (70-110)
[2020-11-08 08:00] VITALS: BP 110/47
[2020-11-08] MEDS: MULTIVITAMINS, THERAPEUTIC 15 ML UDCUP NG SCH (09:00)
[2020-11-08] MEDS: METOPROLOL SUCCINATE 50 MG ER TABLET PO SCH ×2 (09:00→19:49)
[2020-11-08] MEDS: DOCUSATE SODIUM 100 MG CAPSULE PO SCH ×2 (09:00→19:48)
[2020-11-08] MEDS: ALBUTEROL SULFATE 2.5 MG/0.5 ML NEB SOLUTION NEB PRN ×2 (09:06→14:41)
[2020-11-08] MEDS: ACETYLCYSTEINE 10% 100 MG/ML 4 ML NEB SOLUTION NEB PRN ×2 (09:06→14:41)
[2020-11-08] MEDS: CefTRIAXone 1 GM/DEXTROSE 50 ML IV SCH (09:36)
[2020-11-08] MEDS: MONTELUKAST SODIUM 10 MG TABLET PO SCH (09:37)
[2020-11-08] MEDS: DEXAMETHASONE SOD PHOS 4 MG/ML VIAL IVP SCH (09:37)
[2020-11-08] MEDS: ATORVASTATIN CALCIUM 40 MG TABLET PO SCH (09:41)
[2020-11-08] MEDS: DIAZEPAM 5 MG TABLET PO SCH ×2 (09:41→19:48)
[2020-11-08] MEDS: ASPIRIN 81 MG CHEWABLE TABLET PO SCH (09:41)
[2020-11-08] MEDS: APIXABAN 5 MG TABLET PO SCH ×3 (09:41→20:57)
[2020-11-08] MEDS: FLUCONAZOLE 100 MG TABLET NG SCH (09:41)
[2020-11-08] MEDS: INSULIN GLARGINE,HUM.REC.ANLOG 100 UNITS/ML SQ SCH ×2 (10:29→20:56)
[2020-11-08 12:00] VITALS: BP 125/50
[2020-11-08 12:34] LABS: ABG A-A DIFF O2 147.4 mmHg (10-20.0); ABG BASE EXCESS 19.7 mmol/L (-2.0-3.0); ABG CARBOXYHEMOGLOBIN 1.6 % (0.0-1.5); ABG HCO3 41.3 mmol/L (22.0-26.0); ABG METHEMOGLOBIN 0.3 % (0.0-1.5); ABG OXYGEN CONTENT 11.2 mL/dL (15.0-23.0); ABG OXYGEN SATURATION 95.8 % (95.0-98.0); ABG PCO2 64 mmHg (35-45); ABG PH 7.451 (7.35-7.450); ABG TOTAL HEMOGLOBIN 8.4 G/dL (12.0-18.0); O2 DEVICE,BLOOD GAS VENTILATOR (ROOM AIR); SITE, BLOOD GAS ARTERIAL LINE; SOURCE, BLOOD GAS ARTERIAL; TEMPERATURE, FAHRENHEIT, BG 95.7 FAHREN (96.0-98.6); VENT MODE, BG CPAP (ROOM AIR)
[2020-11-08 12:35] LABS: CPAP, BG 5 cm H2O; PRESSURE SUPPORT, BG 8 cm H2O; SPONTANEOUS VT, BG 575 ml
[2020-11-08] MEDS: INSULIN LISPRO 100 UNITS/ML SQ PRN ×3 (12:52→23:40)
[2020-11-08 13:35] LABS: GLUCOSE,POINT OF CARE 144 MG/DL (70-110)
[2020-11-08 13:42] LABS: GLUCOSE,POINT OF CARE 167 MG/DL (70-110)
[2020-11-08 16:00] VITALS: BP 128/46
[2020-11-08 20:00] VITALS: BP 139/44
[2020-11-09] VITALS: BP 120/44
[2020-11-09] MEDS: FENTANYL CITRATE IV PRN ×4 (00:58→16:20)
[2020-11-09] MEDS: WATER IV PRN ×4 (00:58→16:20)
[2020-11-09 04:00] VITALS: BP 130/47
[2020-11-09 04:10] LABS: GLUCOSE,POINT OF CARE 179 MG/DL (70-110)
[2020-11-09 04:10] LABS: GLUCOSE,POINT OF CARE 194 MG/DL (70-110)
[2020-11-09] MEDS: INSULIN LISPRO 100 UNITS/ML SQ PRN ×3 (06:20→23:30)
[2020-11-09 06:26] LABS: BASOPHILS % (AUTO) 0.3 % (0.0-2.0); EOSINOPHILS % (AUTO) 2.3 % (1.0-6.0); HEMATOCRIT 22.8 % (41-53); HEMOGLOBIN 7.4 g/dL (13.5-17.5); LYMPHOCYTES # (AUTO) 1.1 K/uL (1.0-4.8); LYMPHOCYTES % (AUTO) 9.3 % (22.0-44.0); MEAN CORPUSCULAR HEMOGLOBIN 29.4 pg (26.0-34.0); MEAN CORPUSCULAR HGB CONC 32.4 G/dL (31.0-37.0); MEAN CORPUSCULAR VOLUME 91 fL (80-100); MONOCYTES # (AUTO) 1.1 K/uL (0.1-1.0); MONOCYTES % (AUTO) 9.1 % (2.0-9.0); NEUTROPHILS # (AUTO) 9.4 K/uL (1.8-7.7); PLATELET COUNT (AUTO) 331 K/uL (150-450); RED BLOOD CELL COUNT(AUTO) 2.51 MIL/uL (4.50-5.90); RED CELL DISTRIBUTION WIDTH 16.8 % (11.5-14.5)
[2020-11-09 06:41] LABS: GLUCOSE,POINT OF CARE 121 MG/DL (70-110)
[2020-11-09 06:53] LABS: ANION GAP -3 mmol/L (8-16); CALCIUM, TOTAL 8.5 mg/dL (8.8-10.5); CHLORIDE 100 mmol/L (98-107); GLOMERULAR FILTR. RATE CALC > 60 mL/min (>60); GLUCOSE,RANDOM 133 mg/dL (70-110); POTASSIUM 3.9 mmol/L (3.5-5.1); SODIUM SERUM 140 mmol/L (136-145); UREA NITROGEN, BLOOD 24 mg/dL (7-18)
[2020-11-09 07:09] LABS: CARBON DIOXIDE 43 mmol/L (22-29)
[2020-11-09 08:00] VITALS: BP 111/41
[2020-11-09] MEDS: METOPROLOL SUCCINATE 50 MG ER TABLET PO SCH ×2 (09:00→20:07)
[2020-11-09] MEDS: ASPIRIN 81 MG CHEWABLE TABLET PO SCH (09:10)
[2020-11-09] MEDS: APIXABAN 5 MG TABLET PO SCH ×2 (09:10→20:07)
[2020-11-09] MEDS: DIAZEPAM 5 MG TABLET PO SCH ×2 (09:10→20:07)
[2020-11-09] MEDS: ATORVASTATIN CALCIUM 40 MG TABLET PO SCH (09:10)
[2020-11-09] MEDS: MONTELUKAST SODIUM 10 MG TABLET PO SCH (09:10)
[2020-11-09] MEDS: DOCUSATE SODIUM 100 MG CAPSULE PO SCH ×2 (09:10→20:07)
[2020-11-09] MEDS: MULTIVITAMINS, THERAPEUTIC 15 ML UDCUP NG SCH (09:11)
[2020-11-09] MEDS: CefTRIAXone 1 GM/DEXTROSE 50 ML IV SCH (09:11)
[2020-11-09] MEDS: DEXAMETHASONE SOD PHOS 4 MG/ML VIAL IVP SCH (09:11)
[2020-11-09] MEDS: INSULIN GLARGINE,HUM.REC.ANLOG 100 UNITS/ML SQ SCH ×2 (09:12→21:33)
[2020-11-09] MEDS: PROPOFOL 1000 MG/ISO-OSM 100 ML IV PRN ×2 (09:14→17:35)
[2020-11-09] MEDS ORDERED: SODIUM CHLORIDE 0.9% 250 ML IV ONE (09:16)
[2020-11-09] MEDS: FLUCONAZOLE 100 MG TABLET NG SCH (09:16)
[2020-11-09 12:00] VITALS: BP 170/53
[2020-11-09 12:07] LABS: GLUCOSE,POINT OF CARE 132 MG/DL (70-110)
[2020-11-09 16:00] VITALS: BP 156/53
[2020-11-09 19:22] LABS: GLUCOSE,POINT OF CARE 239 MG/DL (70-110)
[2020-11-09 20:00] VITALS: BP 134/56
[2020-11-09 22:44] LABS: GLUCOSE,POINT OF CARE 210 MG/DL (70-110)
[2020-11-09 23:38] LABS: GLUCOSE,POINT OF CARE 179 MG/DL (70-110)
[2020-11-10] VITALS: BP 81/42
[2020-11-10 04:00] VITALS: BP 158/59
[2020-11-10] MEDS: FENTANYL CITRATE IV PRN ×2 (05:44→17:11)
[2020-11-10] MEDS: WATER IV PRN ×2 (05:44→17:11)
[2020-11-10] MEDS: PROPOFOL 1000 MG/ISO-OSM 100 ML IV PRN ×2 (05:44→20:00)
[2020-11-10 06:45] LABS: ANION GAP -3 mmol/L (8-16); CALCIUM, TOTAL 8.5 mg/dL (8.8-10.5); CHLORIDE 102 mmol/L (98-107); GLUCOSE,RANDOM 110 mg/dL (70-110); POTASSIUM 3.8 mmol/L (3.5-5.1); SODIUM SERUM 141 mmol/L (136-145); UREA NITROGEN, BLOOD 25 mg/dL (7-18)
[2020-11-10 06:53] LABS: BASOPHILS % (AUTO) 0.1 % (0.0-2.0); EOSINOPHILS % (AUTO) 1.3 % (1.0-6.0); HEMATOCRIT 23.1 % (41-53); HEMOGLOBIN 7.5 g/dL (13.5-17.5); LYMPHOCYTES # (AUTO) 0.9 K/uL (1.0-4.8); LYMPHOCYTES % (AUTO) 7.3 % (22.0-44.0); MEAN CORPUSCULAR HEMOGLOBIN 29.2 pg (26.0-34.0); MEAN CORPUSCULAR HGB CONC 32.4 G/dL (31.0-37.0); MEAN CORPUSCULAR VOLUME 90 fL (80-100); MONOCYTES # (AUTO) 1.2 K/uL (0.1-1.0); MONOCYTES % (AUTO) 9.4 % (2.0-9.0); NEUTROPHILS # (AUTO) 10.4 K/uL (1.8-7.7); NEUTROPHILS % (AUTO) 81.9 % (40.0-70.0); PLATELET COUNT (AUTO) 306 K/uL (150-450); RED BLOOD CELL COUNT(AUTO) 2.57 MIL/uL (4.50-5.90); RED CELL DISTRIBUTION WIDTH 17.1 % (11.5-14.5)
[2020-11-10 07:08] LABS: CREATININE 0.29 mg/dL (0.60-1.30); GLOMERULAR FILTR. RATE CALC > 60 mL/min (>60)
[2020-11-10 07:09] LABS: CARBON DIOXIDE 42 mmol/L (22-29)
[2020-11-10 07:30] LABS: GLUCOSE,POINT OF CARE 102 MG/DL (70-110)
[2020-11-10 08:00] VITALS: BP 140/54
[2020-11-10] MEDS: INSULIN GLARGINE,HUM.REC.ANLOG 100 UNITS/ML SQ SCH ×2 (09:00→21:59)
[2020-11-10] MEDS: DIAZEPAM 5 MG TABLET PO SCH ×2 (09:03→20:00)
[2020-11-10] MEDS: FLUCONAZOLE 100 MG TABLET NG SCH (09:03)
[2020-11-10] MEDS: ASPIRIN 81 MG CHEWABLE TABLET PO SCH (09:03)
[2020-11-10] MEDS: METOPROLOL SUCCINATE 50 MG ER TABLET PO SCH ×2 (09:03→20:01)
[2020-11-10] MEDS: MONTELUKAST SODIUM 10 MG TABLET PO SCH (09:03)
[2020-11-10] MEDS: DEXAMETHASONE SOD PHOS 4 MG/ML VIAL IVP SCH (09:04)
[2020-11-10] MEDS: DOCUSATE SODIUM 100 MG CAPSULE PO SCH ×2 (09:04→20:00)
[2020-11-10] MEDS: ATORVASTATIN CALCIUM 40 MG TABLET PO SCH (09:04)
[2020-11-10] MEDS: MULTIVITAMINS, THERAPEUTIC 15 ML UDCUP NG SCH (09:04)
[2020-11-10] MEDS: APIXABAN 5 MG TABLET PO SCH ×2 (09:04→20:00)
[2020-11-10] MEDS: CefTRIAXone 1 GM/DEXTROSE 50 ML IV SCH (09:05)
[2020-11-10 12:00] VITALS: BP 112/60
[2020-11-10] MEDS: INSULIN LISPRO 100 UNITS/ML SQ PRN ×2 (12:26→18:27)
[2020-11-10] MEDS: ALBUTEROL SULFATE 2.5 MG/0.5 ML NEB SOLUTION NEB PRN (12:54)
[2020-11-10 14:35] LABS: GLUCOSE,POINT OF CARE 166 MG/DL (70-110)
[2020-11-10] MEDS: DEXMEDETOMIDINE HCL 400 MCG in SODIUM CHLORIDE 0.9% 96 ML IV PRN (14:46)
[2020-11-10 16:00] VITALS: BP 107/55
[2020-11-10 20:00] VITALS: BP 114/55
[2020-11-10] MEDS: ACETAMINOPHEN 325 MG TABLET PO PRN (20:00)
[2020-11-10 21:19] LABS: GLUCOSE,POINT OF CARE 196 MG/DL (70-110)
[2020-11-10 23:29] LABS: GLUCOSE,POINT OF CARE 182 MG/DL (70-110)
[2020-11-11] VITALS: BP 122/55
[2020-11-11] MEDS: INSULIN LISPRO 100 UNITS/ML SQ PRN ×4 (00:05→23:56)
[2020-11-11] MEDS ORDERED: SODIUM CHLORIDE 0.9% 250 ML IV ONE (02:11)
[2020-11-11] MEDS: FENTANYL CITRATE IV PRN ×2 (02:21→15:42)
[2020-11-11] MEDS: WATER IV PRN ×2 (02:21→15:42)
[2020-11-11 04:00] VITALS: BP 114/45
[2020-11-11 04:28] LABS: GLUCOSE,POINT OF CARE 138 MG/DL (70-110)
[2020-11-11 08:00] VITALS: BP 179/55
[2020-11-11] MEDS: DEXAMETHASONE SOD PHOS 4 MG/ML VIAL IVP SCH (08:24)
[2020-11-11] MEDS: ASPIRIN 81 MG CHEWABLE TABLET PO SCH (08:24)
[2020-11-11] MEDS: METOPROLOL SUCCINATE 50 MG ER TABLET PO SCH ×2 (08:24→20:44)
[2020-11-11] MEDS: MULTIVITAMINS, THERAPEUTIC 15 ML UDCUP NG SCH (08:24)
[2020-11-11] MEDS: MONTELUKAST SODIUM 10 MG TABLET PO SCH (08:24)
[2020-11-11] MEDS: DIAZEPAM 5 MG TABLET PO SCH ×2 (08:24→20:43)
[2020-11-11] MEDS: DOCUSATE SODIUM 100 MG CAPSULE PO SCH ×2 (08:25→20:43)
[2020-11-11] MEDS: APIXABAN 5 MG TABLET PO SCH ×2 (08:25→20:43)
[2020-11-11] MEDS: CefTRIAXone 1 GM/DEXTROSE 50 ML IV SCH (08:25)
[2020-11-11] MEDS: ATORVASTATIN CALCIUM 40 MG TABLET PO SCH (08:25)
[2020-11-11] MEDS: INSULIN GLARGINE,HUM.REC.ANLOG 100 UNITS/ML SQ SCH ×2 (08:27→21:00)
[2020-11-11] MEDS: DEXMEDETOMIDINE HCL 400 MCG in SODIUM CHLORIDE 0.9% 96 ML IV PRN (08:27)
[2020-11-11 12:00] VITALS: BP 145/51
[2020-11-11 12:27] LABS: GLUCOSE,POINT OF CARE 105 MG/DL (70-110)
[2020-11-11 16:00] VITALS: BP 94/34
[2020-11-11 17:10] LABS: GLUCOSE,POINT OF CARE 164 MG/DL (70-110)
[2020-11-11 19:18] LABS: GLUCOSE,POINT OF CARE 202 MG/DL (70-110)
[2020-11-11 20:00] VITALS: BP 129/38
[2020-11-11] MEDS: ACETAMINOPHEN 325 MG TABLET PO PRN (20:43)
[2020-11-12] VITALS: BP 141/51
[2020-11-12 02:00] LABS: GLUCOSE,POINT OF CARE 135 MG/DL (70-110)
[2020-11-12] MEDS: PROPOFOL 1000 MG/ISO-OSM 100 ML IV PRN ×4 (03:49→22:47)
[2020-11-12 04:00] VITALS: BP 111/42
[2020-11-12] MEDS ORDERED: SODIUM CHLORIDE 0.9% 500 ML IV ONE ×2 (04:26→12:45)
[2020-11-12 05:48] LABS: GLUCOSE,POINT OF CARE 154 MG/DL (70-110)
[2020-11-12 06:47] LABS: BASOPHILS % (AUTO) 0.4 % (0.0-2.0); HEMATOCRIT 22.2 % (41-53); HEMOGLOBIN 7.3 g/dL (13.5-17.5); LYMPHOCYTES # (AUTO) 0.8 K/uL (1.0-4.8); LYMPHOCYTES % (AUTO) 8.5 % (22.0-44.0); MEAN CORPUSCULAR HEMOGLOBIN 29.7 pg (26.0-34.0); MEAN CORPUSCULAR HGB CONC 32.8 G/dL (31.0-37.0); MEAN CORPUSCULAR VOLUME 90 fL (80-100); MONOCYTES # (AUTO) 0.8 K/uL (0.1-1.0); MONOCYTES % (AUTO) 8.6 % (2.0-9.0); NEUTROPHILS # (AUTO) 7.5 K/uL (1.8-7.7); NEUTROPHILS % (AUTO) 78.5 % (40.0-70.0); PLATELET COUNT (AUTO) 286 K/uL (150-450); RED BLOOD CELL COUNT(AUTO) 2.46 MIL/uL (4.50-5.90); RED CELL DISTRIBUTION WIDTH 17.8 % (11.5-14.5)
[2020-11-12 07:12] LABS: ANION GAP 0 mmol/L (8-16); CALCIUM, TOTAL 8.2 mg/dL (8.8-10.5); CARBON DIOXIDE 40 mmol/L (22-29); CHLORIDE 101 mmol/L (98-107); CREATININE 0.24 mg/dL (0.60-1.30); GLOMERULAR FILTR. RATE CALC > 60 mL/min (>60); GLUCOSE,RANDOM 103 mg/dL (70-110); POTASSIUM 3.3 mmol/L (3.5-5.1); SODIUM SERUM 141 mmol/L (136-145); UREA NITROGEN, BLOOD 17 mg/dL (7-18)
[2020-11-12 07:21] LABS: GLUCOSE,POINT OF CARE 101 MG/DL (70-110)
[2020-11-12 08:00] VITALS: BP 135/51
[2020-11-12] MEDS: MULTIVITAMINS, THERAPEUTIC 15 ML UDCUP NG SCH (08:40)
[2020-11-12] MEDS: DOCUSATE SODIUM 100 MG CAPSULE PO SCH ×2 (08:40→20:35)
[2020-11-12] MEDS: ASPIRIN 81 MG CHEWABLE TABLET PO SCH (08:41)
[2020-11-12] MEDS: DIAZEPAM 5 MG TABLET PO SCH ×2 (08:41→20:35)
[2020-11-12] MEDS: MONTELUKAST SODIUM 10 MG TABLET PO SCH (08:41)
[2020-11-12] MEDS: ATORVASTATIN CALCIUM 40 MG TABLET PO SCH (08:41)
[2020-11-12] MEDS: APIXABAN 5 MG TABLET PO SCH ×2 (08:41→20:35)
[2020-11-12] MEDS: DEXAMETHASONE SOD PHOS 4 MG/ML VIAL IVP SCH (08:42)
[2020-11-12] MEDS: CefTRIAXone 1 GM/DEXTROSE 50 ML IV SCH (08:44)
[2020-11-12] MEDS: METOPROLOL SUCCINATE 50 MG ER TABLET PO SCH ×2 (08:44→20:36)
[2020-11-12] MEDS: INSULIN GLARGINE,HUM.REC.ANLOG 100 UNITS/ML SQ SCH ×2 (09:00→20:36)
[2020-11-12] MEDS: NOREPINEPHRINE 4 MG/D5%-WATER 250 ML IV PRN (09:48)
[2020-11-12] MEDS: WATER IV PRN ×3 (09:49→22:47)
[2020-11-12] MEDS: FENTANYL CITRATE IV PRN ×3 (09:49→22:47)
[2020-11-12] MEDS ORDERED: ROCURONIUM BROMIDE 10 MG/ML 5 ML VIAL IVP ONE (11:30)
[2020-11-12 12:00] VITALS: BP 111/50
[2020-11-12] MEDS: INSULIN LISPRO 100 UNITS/ML SQ PRN ×2 (12:31→18:03)
[2020-11-12] MEDS: POTASSIUM CHL 10 MEQ/WATER 50 ML IV SCH ×4 (12:57→15:24)
[2020-11-12 13:59] LABS: GLUCOSE,POINT OF CARE 166 MG/DL (70-110)
[2020-11-12 13:59] LABS: GLUCOSE,POINT OF CARE 95 MG/DL (70-110)
[2020-11-12 16:00] VITALS: BP 108/43
[2020-11-12] MEDS ORDERED: SODIUM CHLORIDE 0.9% 250 ML IV ONE (17:09)
[2020-11-12 18:50] LABS: GLUCOSE,POINT OF CARE 207 MG/DL (70-110)
[2020-11-12 20:00] VITALS: BP 108/46
[2020-11-13] VITALS: BP 127/51
[2020-11-13] MEDS: INSULIN LISPRO 100 UNITS/ML SQ PRN ×3 (00:01→23:25)
[2020-11-13 00:04] LABS: GLUCOSE,POINT OF CARE 161 MG/DL (70-110)
[2020-11-13 00:05] LABS: GLUCOSE,POINT OF CARE 181 MG/DL (70-110)
[2020-11-13 04:00] VITALS: BP 135/42
[2020-11-13 06:30] LABS: BASOPHILS % (AUTO) 0.3 % (0.0-2.0); EOSINOPHILS % (AUTO) 4.3 % (1.0-6.0); HEMATOCRIT 22.5 % (41-53); HEMOGLOBIN 7.4 g/dL (13.5-17.5); LYMPHOCYTES # (AUTO) 0.9 K/uL (1.0-4.8); LYMPHOCYTES % (AUTO) 10.7 % (22.0-44.0); MEAN CORPUSCULAR HEMOGLOBIN 29.6 pg (26.0-34.0); MEAN CORPUSCULAR HGB CONC 32.7 G/dL (31.0-37.0); MEAN CORPUSCULAR VOLUME 91 fL (80-100); MONOCYTES # (AUTO) 0.8 K/uL (0.1-1.0); MONOCYTES % (AUTO) 9.3 % (2.0-9.0); NEUTROPHILS # (AUTO) 6.6 K/uL (1.8-7.7); NEUTROPHILS % (AUTO) 75.4 % (40.0-70.0); PLATELET COUNT (AUTO) 288 K/uL (150-450); RED BLOOD CELL COUNT(AUTO) 2.49 MIL/uL (4.50-5.90); RED CELL DISTRIBUTION WIDTH 17.6 % (11.5-14.5)
[2020-11-13 06:47] LABS: ANION GAP -1 mmol/L (8-16); CALCIUM, TOTAL 8.2 mg/dL (8.8-10.5); CARBON DIOXIDE 39 mmol/L (22-29); CHLORIDE 102 mmol/L (98-107); CREATININE 0.25 mg/dL (0.60-1.30); GLOMERULAR FILTR. RATE CALC > 60 mL/min (>60); GLUCOSE,RANDOM 108 mg/dL (70-110); SODIUM SERUM 140 mmol/L (136-145); UREA NITROGEN, BLOOD 21 mg/dL (7-18)
[2020-11-13] MEDS: WATER IV PRN ×3 (07:12→22:09)
[2020-11-13] MEDS: FENTANYL CITRATE IV PRN ×3 (07:12→22:09)
[2020-11-13 08:00] VITALS: BP 125/44
[2020-11-13] MEDS: ATORVASTATIN CALCIUM 40 MG TABLET PO SCH (08:58)
[2020-11-13] MEDS: APIXABAN 5 MG TABLET PO SCH ×2 (08:58→20:18)
[2020-11-13] MEDS: CefTRIAXone 1 GM/DEXTROSE 50 ML IV SCH (08:58)
[2020-11-13] MEDS: ASPIRIN 81 MG CHEWABLE TABLET PO SCH (08:58)
[2020-11-13] MEDS: DOCUSATE SODIUM 100 MG CAPSULE PO SCH ×2 (08:58→20:18)
[2020-11-13] MEDS: DIAZEPAM 5 MG TABLET PO SCH ×2 (08:58→20:18)
[2020-11-13] MEDS: MONTELUKAST SODIUM 10 MG TABLET PO SCH (08:58)
[2020-11-13] MEDS: DEXAMETHASONE SOD PHOS 4 MG/ML VIAL IVP SCH (08:59)
[2020-11-13] MEDS: MULTIVITAMINS, THERAPEUTIC 15 ML UDCUP NG SCH (09:00)
[2020-11-13] MEDS: INSULIN GLARGINE,HUM.REC.ANLOG 100 UNITS/ML SQ SCH ×2 (09:08→20:21)
[2020-11-13] MEDS: PROPOFOL 1000 MG/ISO-OSM 100 ML IV PRN ×2 (09:22→22:09)
[2020-11-13 11:11] LABS: GLUCOSE,POINT OF CARE 98 MG/DL (70-110)
[2020-11-13 11:11] LABS: GLUCOSE,POINT OF CARE 108 MG/DL (70-110)
[2020-11-13 12:00] VITALS: BP 140/51
[2020-11-13] MEDS: METOPROLOL SUCCINATE 50 MG ER TABLET PO SCH ×2 (13:27→20:19)
[2020-11-13 14:43] LABS: GLUCOSE,POINT OF CARE 128 MG/DL (70-110)
[2020-11-13 16:00] VITALS: BP 148/34
[2020-11-13 19:46] LABS: GLUCOSE,POINT OF CARE 196 MG/DL (70-110)
[2020-11-13 20:00] VITALS: BP 109/45
[2020-11-13 20:24] LABS: GLUCOSE,POINT OF CARE 184 MG/DL (70-110)
[2020-11-14] VITALS: BP 110/45
[2020-11-14 00:12] LABS: GLUCOSE,POINT OF CARE 133 MG/DL (70-110)
[2020-11-14 04:00] VITALS: BP 123/42
[2020-11-14 06:47] LABS: GLUCOSE,POINT OF CARE 107 MG/DL (70-110)
[2020-11-14] MEDS: PROPOFOL 1000 MG/ISO-OSM 100 ML IV PRN ×4 (07:08→21:41)
[2020-11-14 08:00] VITALS: BP 121/39
[2020-11-14] MEDS: WATER IV PRN ×2 (08:06→14:28)
[2020-11-14] MEDS: FENTANYL CITRATE IV PRN ×2 (08:06→14:28)
[2020-11-14] MEDS: METOPROLOL SUCCINATE 50 MG ER TABLET PO SCH ×2 (08:50→21:00)
[2020-11-14] MEDS: DEXAMETHASONE SOD PHOS 4 MG/ML VIAL IVP SCH (08:59)
[2020-11-14] MEDS: CefTRIAXone 1 GM/DEXTROSE 50 ML IV SCH (08:59)
[2020-11-14] MEDS: ATORVASTATIN CALCIUM 40 MG TABLET PO SCH (09:00)
[2020-11-14] MEDS: MONTELUKAST SODIUM 10 MG TABLET PO SCH (09:00)
[2020-11-14] MEDS: MULTIVITAMINS, THERAPEUTIC 15 ML UDCUP NG SCH (09:00)
[2020-11-14] MEDS: DOCUSATE SODIUM 100 MG CAPSULE PO SCH ×2 (09:00→21:11)
[2020-11-14] MEDS: ASPIRIN 81 MG CHEWABLE TABLET PO SCH (09:00)
[2020-11-14] MEDS: APIXABAN 5 MG TABLET PO SCH ×2 (09:00→21:11)
[2020-11-14] MEDS: DIAZEPAM 5 MG TABLET PO SCH ×2 (09:02→21:11)
[2020-11-14] MEDS: NOREPINEPHRINE 4 MG/D5%-WATER 250 ML IV PRN (10:11)
[2020-11-14 12:00] VITALS: BP 132/45
[2020-11-14] MEDS: INSULIN GLARGINE,HUM.REC.ANLOG 100 UNITS/ML SQ SCH ×2 (12:35→21:04)
[2020-11-14] MEDS: INSULIN LISPRO 100 UNITS/ML SQ PRN ×2 (12:36→18:44)
[2020-11-14] MEDS ORDERED: SODIUM CHLORIDE 0.9% 250 ML IV ONE (14:15)
[2020-11-14 14:57] LABS: GLUCOSE,POINT OF CARE 178 MG/DL (70-110)
[2020-11-14 16:00] VITALS: BP 111/45
[2020-11-14 20:00] VITALS: BP 117/44
[2020-11-15] VITALS: BP 113/43
[2020-11-15] MEDS: INSULIN LISPRO 100 UNITS/ML SQ PRN ×3 (00:12→13:08)
[2020-11-15] MEDS: WATER IV PRN ×3 (00:40→12:39)
[2020-11-15] MEDS: FENTANYL CITRATE IV PRN ×3 (00:40→12:39)
[2020-11-15] MEDS: PROPOFOL 1000 MG/ISO-OSM 100 ML IV PRN ×2 (01:54→06:57)
[2020-11-15] MEDS: NOREPINEPHRINE 4 MG/D5%-WATER 250 ML IV PRN ×2 (02:42→13:37)
[2020-11-15 04:00] VITALS: BP 117/44
[2020-11-15 06:00] LABS: GLUCOSE,POINT OF CARE 199 MG/DL (70-110)
[2020-11-15 06:00] LABS: GLUCOSE,POINT OF CARE 233 MG/DL (70-110)
[2020-11-15 06:01] LABS: GLUCOSE,POINT OF CARE 167 MG/DL (70-110)
[2020-11-15 08:00] VITALS: BP 119/42
[2020-11-15] MEDS: METOPROLOL SUCCINATE 50 MG ER TABLET PO SCH (08:59)
[2020-11-15] MEDS: ASPIRIN 81 MG CHEWABLE TABLET PO SCH (09:19)
[2020-11-15] MEDS: DOCUSATE SODIUM 100 MG CAPSULE PO SCH (09:19)
[2020-11-15] MEDS: MULTIVITAMINS, THERAPEUTIC 15 ML UDCUP NG SCH (09:19)
[2020-11-15] MEDS: DIAZEPAM 5 MG TABLET PO SCH (09:19)
[2020-11-15] MEDS: CefTRIAXone 1 GM/DEXTROSE 50 ML IV SCH (09:19)
[2020-11-15] MEDS: APIXABAN 5 MG TABLET PO SCH (09:20)
[2020-11-15] MEDS: DEXAMETHASONE SOD PHOS 4 MG/ML VIAL IVP SCH (09:20)
[2020-11-15] MEDS: ATORVASTATIN CALCIUM 40 MG TABLET PO SCH (09:20)
[2020-11-15] MEDS: MONTELUKAST SODIUM 10 MG TABLET PO SCH (09:23)
[2020-11-15] MEDS: INSULIN GLARGINE,HUM.REC.ANLOG 100 UNITS/ML SQ SCH (09:25)
[2020-11-15 09:44] LABS: GLUCOSE,POINT OF CARE 154 MG/DL (70-110)
[2020-11-15] MEDS ORDERED: SODIUM CHLORIDE 0.9% 500 ML IV ONE ×2 (11:07→12:07)
[2020-11-15] MEDS ORDERED: SODIUM CHLORIDE 0.9% 250 ML IV ONE (11:07)
[2020-11-15 12:00] VITALS: BP 108/42
[2020-11-15 15:45] LABS: GLUCOSE,POINT OF CARE 199 MG/DL (70-110)
[2020-11-15 16:00] VITALS: BP 129/50
[2020-11-15 18:05] LABS: GLUCOSE,POINT OF CARE 211 MG/DL (70-110)
[2020-11-16] MEDS ORDERED: CeFAZolin 1 GM/DEXTROSE 50 ML IV ONE (11:00)
== END 2020-11-15 18:35 | DRG 4 ==
LOC: EMS 15:03 → ICU 19:00 → EDBD 19:00
PROVIDERS: ADMIT Internal Medicine; ATTEND Internal Medicine
PROC: 5A09557 Assistance with Respiratory Ventilation, Greater than 96 Consecutive Hours, Continuous Positive Airway Pressure (ICD-10-PCS; 2020-10-08)
PROC: 5A1955Z Respiratory Ventilation, Greater than 96 Consecutive Hours (ICD-10-PCS; principal; 2020-10-19)
PROC: 0BH17EZ Insertion of Endotracheal Airway into Trachea, Via Natural or Artificial Opening (ICD-10-PCS; 2020-10-19)
PROC: 02HV33Z Insertion of Infusion Device into Superior Vena Cava, Percutaneous Approach (ICD-10-PCS; 2020-10-19)
PROC: B548ZZA Ultrasonography of Superior Vena Cava, Guidance (ICD-10-PCS; 2020-10-19)
PROC: 0W9B30Z Drainage of Left Pleural Cavity with Drainage Device, Percutaneous Approach (ICD-10-PCS; 2020-11-03)
PROC: 0B113F4 Bypass Trachea to Cutaneous with Tracheostomy Device, Percutaneous Approach (ICD-10-PCS; 2020-11-12)
PROC: 0W9930Z Drainage of Right Pleural Cavity with Drainage Device, Percutaneous Approach (ICD-10-PCS; 2020-11-12)
DX: A41.9 Sepsis, unspecified organism (principal); U07.1 COVID-19; E43 Unspecified severe protein-calorie malnutrition; J12.82 Pneumonia due to coronavirus disease 2019; J80 Acute respiratory distress syndrome; J93.9 Pneumothorax, unspecified; E87.1 Hypo-osmolality and hyponatremia; N17.9 Acute kidney failure, unspecified; Z99.11 Dependence on respirator [ventilator] status; I10 Essential (primary) hypertension; E11.65 Type 2 diabetes mellitus with hyperglycemia; E78.00 Pure hypercholesterolemia, unspecified; I25.10 Atherosclerotic heart disease of native coronary artery without angina pectoris; D64.9 Anemia, unspecified; E66.9 Obesity, unspecified; Z68.21 Body mass index [BMI] 21.0-21.9, adult
CPT/HCPCS: 36245; 36600; 71250; 77012; 82728; 82805; 83605; 83615; 84145; 85379; 86140; 87040; 87070; 87081; 87086; 87426; 93005; 94002; 94003; 94640; 94660; A9575; G0238; G0378; J0360; J0456; J0690; J0696; J1100; J1644; J1815; J1940; J2001; J2060; J2250; J2405; J2704; J3010; J3370; J3480; J3490; J7030; J7040; J7050; J7060; 36415-L1; 36415-TC; 71045-TC; J7613; U0003